=== PATIENT | female | born 1935 | race Caucasian/White ===

== ENCOUNTER 2019-02-21 07:36 | Inpatient (IN) | payer MEDICARE ==
[~2019-02-21] VITALS: Ht 149.9 cm; Wt 66.8 kg
--- NOTE | 2019-02-21 07:58 | PHYS DOC ---
Past History Past Medical History: Diabetes Past Surgical History: Cholecystectomy Alcohol Use: None Drug Use: None Adult General Chief Complaint Chief Complaint: DIZZY/LIGHT HEADED [facility] HPI Patient is an 83-year-old female who presents with complaint of dizziness that started this morning when she woke up at 4:00 AM. Patient states that the dizziness feels like she is a fall and so has been holding onto the wall when she gets up and walks. She denies any nausea or vomiting. She also denies any headache. Patient states that she has had no chest pain or shortness of breath. She states that symptoms are worsened when she stands up. She states that nothing improves the symptoms.[] Review of Systems Review of Systems Constitutional: Denies fever or chills [] Eyes: Denies change in visual acuity, redness, or eye pain [] Respiratory: Denies cough or shortness of breath [] Cardiovascular: No additional information not addressed in HPI [] GI: Denies abdominal pain, nausea, vomiting or diarrhea [] Integument: Denies rash or skin lesions [] Neurologic: Denies headache, focal weakness or sensory changes. Complains of dizziness. [] All other systems were reviewed and found to be within normal limits, except as documented in this note. Allergies Allergies Allergies Coded Allergies Type Severity Reaction Last Updated Verified Sulfa (Sulfonamide Antibiotics) Allergy Unknown 02/21/19 Yes Physical Exam Physical Exam Constitutional: Well developed, well nourished, no acute distress, non-toxic appearance. [] HENT: Normocephalic, atraumatic, bilateral external ears normal, oropharynx moist, no oral exudates, nose normal. [] Eyes: PERRLA, EOMI, conjunctiva normal, no discharge. [] Neck: Normal range of motion, no tenderness, supple, no stridor. [] Cardiovascular: Regular rate and rhythm[] Lungs & Thorax: Bilateral breath sounds clear to auscultation [] Abdomen: Bowel sounds normal, soft, no tenderness. [] Skin: Warm, dry, no erythema, no rash. [] Extremities: No tenderness, no cyanosis, no clubbing, ROM intact. [] Neurologic: Alert and oriented X 3, no focal deficits noted. [] Current Patient Data Vital Signs Vital Signs Date Time Temp Pulse Resp B/P (MAP) Pulse Ox O2 Delivery O2 Flow Rate FiO2 02/21/19 07:49 98.1 94 18 96 Room Air EKG EKG EKG demonstrates normal sinus rhythm with rate of 79. Nonspecific intraventricular block is noted.[] Radiology/Procedures Radiology/Procedures [] Impressions: PROCEDURE: CT HEAD WO CONTRAST Examination: CT HEAD WO CONTRAST History: Dizziness and hypertension Comparison/Correlation: None Findings: Axial images of the head were obtained without contrast. Atrophy and chronic ischemic changes of the white matter are noted. Right anterior limb internal capsule lacunar infarct of indeterminate age noted. No midline shift or mass effect. Right and left external capsule lacunar infarct noted. Cavernous carotid calcification noted. Bony structures are unremarkable. Impression: No intracranial hemorrhage. Lacunar infarcts are present and probably old. RS Compliance Statement: One or more of the following individualized dose reduction techniques were utilized for this examination: 1. Automated exposure control 2. Adjustment of the mA and/or kV according to patient size 3. Use of iterative reconstruction technique Electronically signed by: Jeannette Foley MD (02/21/2019 8:21 AM) [facility] DICTATED AND SIGNED BY: JEANNETTE FOLEY MD DATE: 02/21/19 08 CC: ELISA JOSEPH Jr. DO; PCP,NO ~ Course & Med Decision Making Course & Med Decision Making Pertinent Labs and Imaging studies reviewed. (See chart for details) [] Dragon Disclaimer Dragon Disclaimer This electronic medical record was generated, in whole or in part, using a voice recognition dictation system. Departure Departure: Impression: Primary Impression: Hypertensive crisis Additional Impression: Dizziness Disposition: ADMITTED INPATIENT Admitting Physician: Dave Elmore Condition: IMPROVED Referrals: PCP,NO (PCP) Problem Qualifiers ELISA JOSEPH Jr. DO Feb 21, 2019 07:58
--- NOTE | 2019-02-21 08:00 | EKG ---
[address] [address] Test Date: 2019-02-21 Test Time: 07:53:53 Pat Name: CHARITY GONZALEZ Department: Room: Gender: F Soft[place] Faller: : 1935 Requested By: ELISA JOSEPH Order Number: [id number] Reading MD: Willie Henley MD Measurements Intervals [place] Rate: 79 P: 52 AR: 180 QRS: 6 QRSD: 130 T: 154 QT: 430 QTc: 494 Interpretive Statements SINUS RHYTHM LBBB Electronically Signed On 03-04-2019 14:29:32 CDT by Willie Henley MD
[2019-02-21 08:13] LABS: BASO # 0.1 x10^3/uL (0.0-0.2); BASO % 1 % (0-3); EOS # 0.1 x10^3/uL (0.0-0.7); EOS % 1 % (0-3); HEMATOCRIT 41.1 % (36.0-47.0); HEMOGLOBIN 13.8 g/dL (12.0-15.5); LYMPH # 1.5 x10^3/uL (1.0-4.8); LYMPH % 27 % (24-48); MEAN CORPUSCULAR HEMOGLOBIN 30 pg (25-35); MEAN CORPUSCULAR HGB CONC 34 g/dL (31-37); MEAN CORPUSCULAR VOLUME 88 fL (79-100); MONO # 0.4 x10^3/uL (0.0-1.1); MONO % 7 % (0-9); NEUT # 3.6 x10^3uL (1.8-7.7); NEUT % 64 % (31-73); PLATELET COUNT 276 x10^3/uL (140-400); RED BLOOD COUNT 4.66 x10^6/uL (3.50-5.40); WHITE BLOOD COUNT 5.6 x10^3/uL (4.0-11.0)
--- NOTE | 2019-02-21 08:24 | RAD ---
Examination: CT HEAD WO CONTRAST History: Dizziness and hypertension Comparison/Correlation: None Findings: Axial images of the head were obtained without contrast. Atrophy and chronic ischemic changes of the white matter are noted. Right anterior limb internal capsule lacunar infarct of indeterminate age noted. No midline shift or mass effect. Right and left external capsule lacunar infarct noted. Cavernous carotid calcification noted. Bony structures are unremarkable. Impression: No intracranial hemorrhage. Lacunar infarcts are present and probably old. PQRS Compliance Statement: One or more of the following individualized dose reduction techniques were utilized for this examination: 1. Automated exposure control 2. Adjustment of the mA and/or kV according to patient size 3. Use of iterative reconstruction technique Electronically signed by: Bharat Barbosa MD (02/21/2019 8:21 AM) [facility]
[2019-02-21 08:25] LABS: ALBUMIN 3.5 g/dL (3.4-5.0); ALBUMIN/GLOBULIN RATIO 0.8 (1.0-1.7); CALCIUM 8.8 mg/dL (8.5-10.1); CREATININE 1.3 mg/dL (0.6-1.0); GFR 39.3; POTASSIUM 3.6 mmol/L (3.5-5.1); TOTAL BILIRUBIN 0.4 mg/dL (0.2-1.0); TOTAL PROTEIN 7.7 g/dL (6.4-8.2)
--- NOTE | 2019-02-21 08:26 | RAD ---
Examination: PORTABLE CHEST 1V History: Dizziness Comparison/Correlation: None Findings: Portable frontal view of the chest was obtained. Heart size normal. No pneumothorax. No focal infiltrate. No pneumothorax or definite effusion. No acute bony process. Impression: No active disease. Electronically signed by: Bharat Barbosa MD (02/21/2019 8:23 AM) [facility]
[2019-02-21] MEDS ORDERED: hydrALAZINE 20 MG/ML VIAL. IV ONE (08:30)
[2019-02-21 08:42] LABS: BACTERIA,URINE MANY /HPF (0-FEW); BILIRUBIN,URINE NEG (NEG); CLARITY,URINE HAZY; COLOR,URINE STRAW; GLUCOSE,URINE NEG (NEG); NITRITE,URINE NEG (NEG); SQUAMOUS EPITHELIAL CELL,UR FEW /LPF; UROBILINOGEN,URINE 0.2 mg/dL (0.2 mg/dL)
[2019-02-21] MEDS ORDERED: hydrALAZINE 20 MG/ML VIAL. IV PRN (11:00)
[2019-02-21 11:07] VITALS: BP 223/96
--- NOTE | 2019-02-21 11:12 | PDOC2 ---
CARDIAC CONSULT DATE OF CONSULT Date Of Consult DATE: 02/21/19 TIME: 11:09 REASON FOR CONSULT Reason for Consult Hypertensive Crisis REFERRING PHYSICIAN Referring Physician Dr. Elmore SOURCE Source: Chart review, Patient HPI History of Present Illness This is a 83 yo female who presented secondary to dizziness. Patient reports this began this morning when she woke up. Had to hold on to the wall and furniture when she is up. Has never felt this way before. No dizziness, diaphoresis, palpitations, or nausea/vomiting. Blood pressure significantly elevated upon arrival to the ED. Does have a history of hypertension, but does not take any meds for this. Does not like to take medications. Was put on antihypertensive about 20 years ago and it made her urinate frequently so she quite taking. Has not seen a physician in over 6 years. PAST MEDICAL HISTORY Cardiovascular: HTN Pulmonary: No pertinent hx CENTRAL NERVOUS SYSTEM: CVA GI: No pertinent hx Heme/Onc: No pertinent hx Hepatobiliary: No pertinent hx Psych: No pertinent hx Musculoskeletal: No pertinent hx Rheumatologic: No pertinent hx Infectious disease: No pertinent hx ENT: No pertinent hx Renal/: No pertinent hx Endocrine: Diabetes Dermatology: No pertinent hx PAST SURGICAL HISTORY Past Surgical History: Cholecystectomy FAMILY HISTORY Family History: Hypertension SOCIAL HISTORY Smoke: No ALCOHOL: none Drugs: None Lives: with Family CURRENT MEDICATIONS Current Medications Current Medications Hydralazine HCl (Apresoline) 10 mg 1X ONCE IV Last administered on 02/21/19at 08:21; Start 02/21/19 at 08:30; Stop 02/21/19 at 08:31; Status DC Hydralazine HCl (Apresoline) 10 mg PRN Q4HRS PRN IV ELEVATED BP, SEE COMMENTS; Start 02/21/19 at 11:00 ALLERGIES Allergies: Coded Allergies: Sulfa (Sulfonamide Antibiotics) (Verified Allergy, Unknown, 02/21/19) ROS Review of Systems 14 point ROS conducted with pertinent positives noted above in HPI. PHYSICAL EXAM General: Alert, Oriented X3, Cooperative, No acute distress HEENT: Atraumatic Lungs: Clear to auscultation Heart: Other (ST rate 125, distant heart tones ) Abdomen: No tenderness Extremities: No edema, Normal pulses Skin: No breakdown Neuro: Sensation intact Psych/Mental Status: Mental status NL, Mood NL MUSCULOSKELETAL: Osteoarthritic changes both hands VITALS Vital Signs Vital Signs Date Time Temp Pulse Resp B/P (MAP) Pulse Ox O2 Delivery O2 Flow Rate FiO2 02/21/19 11:07 98.2 112 20 223/96 (138) 94 Room Air LABS LABS Laboratory Tests Test 02/21/19 08:00 02/21/19 08:15 White Blood Count 5.6 x10^3/uL (4.0-11.0) Red Blood Count 4.66 x10^6/uL (3.50-5.40) Hemoglobin 13.8 g/dL (12.0-15.5) Hematocrit 41.1 % (36.0-47.0) Mean Corpuscular Volume 88 fL (79-100) Mean Corpuscular Hemoglobin 30 pg (25-35) Mean Corpuscular Hemoglobin Concent 34 g/dL (31-37) Red Cell Distribution Width 14.0 % (11.5-14.5) Platelet Count 276 x10^3/uL (140-400) Neutrophils (%) (Auto) 64 % (31-73) Lymphocytes (%) (Auto) 27 % (24-48) Monocytes (%) (Auto) 7 % (0-9) Eosinophils (%) (Auto) 1 % (0-3) Basophils (%) (Auto) 1 % (0-3) Neutrophils # (Auto) 3.6 x10^3uL (1.8-7.7) Lymphocytes # (Auto) 1.5 x10^3/uL (1.0-4.8) Monocytes # (Auto) 0.4 x10^3/uL (0.0-1.1) Eosinophils # (Auto) 0.1 x10^3/uL (0.0-0.7) Basophils # (Auto) 0.1 x10^3/uL (0.0-0.2) Sodium Level 140 mmol/L (136-145) Potassium Level 3.6 mmol/L (3.5-5.1) Chloride Level 103 mmol/L (98-107) Carbon Dioxide Level 27 mmol/L (21-32) Anion Gap 10 (6-14) Blood Urea Nitrogen 23 mg/dL (7-20) Creatinine 1.3 mg/dL (0.6-1.0) Estimated GFR (Cockcroft-Gault) 39.3 BUN/Creatinine Ratio 18 (6-20) Glucose Level 174 mg/dL (70-99) Calcium Level 8.8 mg/dL (8.5-10.1) Magnesium Level 2.0 mg/dL (1.8-2.4) Total Bilirubin 0.4 mg/dL (0.2-1.0) Aspartate Amino Transf (AST/SGOT) 20 U/L (15-37) Alanine Aminotransferase (ALT/SGPT) 28 U/L (14-59) Alkaline Phosphatase 74 U/L (46-116) Troponin I Quantitative < 0.017 ng/mL (0-0.055) Total Protein 7.7 g/dL (6.4-8.2) Albumin 3.5 g/dL (3.4-5.0) Albumin/Globulin Ratio 0.8 (1.0-1.7) Urine Collection Type Unknown Urine Color Straw Urine Clarity Hazy Urine pH 6.0 Urine Specific [place] 1.015 Urine Protein >100 mg/dl (NEG-TRACE) Urine Glucose (UA) Neg mg/dL (NEG) Urine Ketones (Stick) Neg mg/dL (NEG) Urine Blood Trace (NEG) Urine Nitrite Neg (NEG) Urine Bilirubin Neg (NEG) Urine Urobilinogen Dipstick 0.2 mg/dL (0.2 mg/dL) Urine Leukocyte Esterase Trace (NEG) Urine RBC 1-2 /HPF (0-2) Urine WBC 11-20 /HPF (0-4) Urine Squamous Epithelial Cells Few /LPF Urine Transitional Epithelial Cells Occ /LPF Urine Bacteria Many /HPF (0-FEW) ASSESSMENT/PLAN Assessment/Plan 1. Dizziness; CT head without acute findings 2. Accelerated hypertension; remains elevated. Has a history of HTN, but has been reluctant to taking medications 3. Diabetes, II 4. LBBB; no previous for comparison 5. H/o CVA 6. MINH, dehydration Recommendations Echo to assess LV systolic function Orthostatics Lipid panel IVFs ASA Add lisinopril. D/w with patient, she is agreeable to take. Monitor and make adjustments as warranted Hydralazine IV PRN Further ischemic evaluation given risk factors and LBBB noted on EKG, probably as an outpatient if agreeable. JOSE TELLES APRN Feb 21, 2019 11:12
[2019-02-21] MEDS ORDERED: METOPROLOL TARTRATE 5 MG/5 ML VIAL. IV ONE (11:30)
[2019-02-21 11:42] VITALS: BP 132/70
[2019-02-21] MEDS ORDERED: FLU VAX QS 2019-20 (36MOS+)/PF 0.5 ML SYRINGE. VAX IM ONE (12:45)
[2019-02-21 12:59] VITALS: BP 146/71
[2019-02-21] MEDS: LISINOPRIL 10 MG TABLET PO SCH (13:00)
[2019-02-21] MEDS: IV NORMAL SALINE 1,000ML 1,000 ML IV SCH (15:01)
[2019-02-21 15:27] VITALS: BP 137/65
[2019-02-21 19:33] VITALS: BP 183/82
--- NOTE | 2019-02-21 19:38 | HP ---
ADMIT DATE: 02/21/2019 HISTORY OF PRESENT ILLNESS: The patient is an 83-year-old female patient who presented to the Emergency Room with a complaint of dizziness that started this morning when she woke up at 4:00 a.m. The patient states that the dizziness feels like she is going to fall and has been holding onto the eller when she gets up and walks. She denied any nausea or vomiting. Denied any headache, denied any chest pain, tingling, numbness, or shortness of breath. Denied any diplopia. She is not feeling things are spinning around. Her symptoms get worse when she stands up. On arrival to the Emergency Room, she was extensively investigated. Her blood pressure was extremely high on admission. Apparently, her blood pressure on arrival was 221/80. She had lab work done, which showed that her blood count is within normal range. Her chemistry showed that her creatinine is slightly high at 1.3. Blood sugar was elevated also at 174. Urinalysis showed that she has proteinuria and leukocyturia as well as many bacteria. Her CT scan of the head was unremarkable. It showed no intracranial hemorrhage and her chest x-ray was unremarkable. PAST MEDICAL HISTORY: Significant for hypertension, type 2 diabetes. She apparently has had previous history of cerebrovascular accident, presented with aphasia and facial droop years ago. PAST SURGICAL HISTORY: Significant for bilateral cataract extraction and cholecystectomy. ALLERGIES: SHE IS ALLERGIC TO SULFA DRUGS. MEDICATIONS: Apparently, the patient has not been on any medication at home and her diabetes was diet controlled. FAMILY HISTORY: She has one brother who in his 70s due to myocardial infarction. SOCIAL HISTORY: She is . Her 2 older sons , one of committing suicide, one killed in a car accident. She has one biological daughter and one adopted son that she does not know much about. She has never smoked, does not drink alcohol or use any recreational drugs. 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 REVIEW OF SYSTEMS: The patient has bilateral cataract extraction, but denied any glaucoma or macular degeneration. Denied any earache, tinnitus or sensorineural deafness. Denied any nosebleeds, stuffy nose or postnasal drip. Denied any sore throat, sore tongue, toothache, hoarseness of voice or difficulty swallowing. Denied any blurring of vision, cataract, glaucoma or macular degeneration. Denied any earache, tinnitus or sensorineural deafness. Denied any nosebleeds, stuffy nose or postnasal drip. Denied any sore throat, sore tongue, toothache, hoarseness of voice or difficulty swallowing. Denied any nausea, vomiting, diarrhea or constipation. Denied any hematemesis, melena or hematochezia. Denied any dysuria, frequency or hematuria, although daughter said she has polyuria. Denied any chest pain, shortness of breath, orthopnea, paroxysmal nocturnal dyspnea. Denied any cough, phlegm or hemoptysis. She did complain of being dizziness, but denied any vertigo. PHYSICAL EXAMINATION: GENERAL: On examining her, she was resting slightly propped up in bed, in no apparent respiratory distress. No pallor, jaundice, cyanosis or thyromegaly. No jugular venous distention. No limb edema. VITAL SIGNS: Her heart rate was 82. We checked her blood pressure lying was 177, sitting was 152/74 and standing was 147/73. HEAD, EYES, EARS, NOSE AND THROAT: Showed normocephalic, atraumatic. NECK: Supple. HEART: Showed normal first and second heart sounds. No gallop or murmur. CHEST: Clear to auscultation. No crepitation or rhonchi. ABDOMEN: Distended, soft, nontender. No guarding or rigidity. No organomegaly. All hernial orifice intact. Bowel sounds normal. NEUROLOGIC: She is awake, alert. All her cranial nerves seem to be grossly intact, although she seemed to have some expressive aphasia. She moves all extremities without difficulty. She is unsteady on her feet and feels dizzy. I did a detail neurological exam and all her cranial nerves are intact and the strength on all 4 limbs are normal and equal about 5/5. There is no evidence of cerebellar dysfunction. No dysdiadochokinesis. [id number] test was negative. The patient could not walk in her line. She is very unsteady and tends to fall onto the other, however, Romberg test was negative. LABORATORY DATA: Showed that her white cell count was 5600, hemoglobin 13.8, hematocrit 41, MCV 88 and platelet count of 276,000 with normal manual differential. Her chemistry showed a serum sodium 140, potassium 3.6, chloride 103, bicarbonate 27, anion gap of 10, BUN 23, creatinine 1.3, estimated GFR was 39 mL per minute. Her glucose 174, calcium was 8.8, magnesium 2. Total bilirubin, AST, ALT, alkaline phosphatase were normal. Her total protein was 7.7, albumin was 3.5. Her urinalysis showed the urine was yellow, straw colored, hazy with a pH of 6, specific gravity of 1.015, there was large amount of protein. The urine was negative for glucose, ketones, trace of blood, negative for nitrite, trace of leukocyte esterase, 1-2 rbc's, 11-20 wbc's, and too many bacteria. As I stated, her chest x-ray showed that the heart size is normal. There is pneumothorax, no focal infiltrate, no effusion, no acute bony process. Her CT scan of the head showed that there is atrophy and chronic ischemic changes in the white matter noted right anterior limb internal capsule lacunar infarct, indeterminate age is noted. No midline shift or mass effect, right and left external capsule lacunar infarct noted. She has cavernous carotid calcification noted. Bony structures are unremarkable. ASSESSMENT AND PLAN: The patient was admitted with dizziness and accelerated hypertension. She is known to have a left bundle-branch block, diabetes mellitus and history of cerebrovascular accident. Her orthostatic showed that she has marked postural drop of almost 30 mm. We did this after she was admitted to the hospital, her blood pressure supine was 177/88, sitting was 152/74, standing was 147/73. She is now on lisinopril and hydralazine IV. She had 3 sets of cardiac enzymes that were negative. Her TSH was normal at 2.66. Her serum triglycerides 115, total cholesterol was 232, LDL cholesterol 157, VLDL was 23, HDL cholesterol 52 and the ratio of 4. We will monitor her blood sugar, although she states that her blood sugar is well controlled. She has had an echocardiogram done, the results were still pending at the time of this dictation. The cardiology team was consulted and I would consult neurologist and check also her carotid Doppler as well as renal Doppler ultrasound. ELIE GLASS MD DR: TITUS/manuel JOB#: [id number] / [id number]
[2019-02-21 22:25] VITALS: BP 148/75
--- NOTE | 2019-02-22 00:05 | CONS ---
DATE OF CONSULTATION: REFERRING PHYSICIAN: Dr. Elmore. REASON FOR CONSULTATION: Dizziness and impaired balance. HISTORY OF PRESENT ILLNESS: This is an 83-year-old right-handed female who was admitted through Emergency Room on account of acute onset of impaired balance and dizziness. According to the patient, she woke up at 2:00 this morning and she was very dizzy and unsteady. She had to hold on the wall and furniture when she is up, but she did not sustain any falls. The patient denies any headaches, visual disturbances, nausea, vomiting, chest pain, shortness of breath or palpitation, dysarthria or dysphagia. She has had weakness of the lower extremities. For this, she likes to walk in the backyard. She did walk uphill yesterday and she got very tired. In the Emergency Room, she was found to have emergency hypertension at 223/96. Initial nonenhanced head CT scan revealed no acute intracranial process, but it showed bilateral external capsule lacunar infarcts. The patient stated she has not taken any blood pressure medication. In the Emergency Room, she was placed on blood pressure medicine, and her blood pressure has been fluctuating throughout the day. PAST MEDICAL HISTORY: Significant for hypertension, history of stroke without neurological residual and diabetes mellitus, diet controlled. PAST SURGICAL HISTORY: Cholecystectomy. FAMILY HISTORY: Positive for hypertension. SOCIAL HISTORY: The patient lives with her daughter at home. She denies smoking, alcohol drinking, or illicit drug use. CURRENT MEDICATIONS: Aspirin 81 mg daily, lorazepam 0.5 mg q.6 hours p.r.n., lisinopril 10 mg daily, hydralazine 10 mg IV p.r.n. for systolic blood pressure more than 160. ALLERGIES: SULFA DRUGS. REVIEW OF SYSTEMS: A 10-point review of system was performed as mentioned above in history of present illness. PHYSICAL EXAMINATION: GENERAL: Well-developed, well-nourished female, not in acute distress. She weighs 66.5 kilos. VITAL SIGNS: Blood pressure 137/65, respiratory rate 20, pulse is 82, temperature 98.4, and oxygen saturation 95% on room air. HEENT: Normocephalic, atraumatic, otherwise unremarkable. NECK: Supple. Negative for carotid bruit, lymphadenopathy or thyromegaly. LUNGS: Clear to A and P. CARDIOVASCULAR: Regular rate and rhythm, normal S1, S2. There is no S3, S4 or murmur. ABDOMEN: Soft. Bowel sounds positive. EXTREMITIES: Negative for cyanosis, clubbing or pitting edema. NEUROLOGICAL EXAM: Mental Status: The patient is alert and oriented x 3. Speech is fluent. There is no language dysfunction. Memory, judgment, and abstract thinking are normal. The patient denies hallucination or delusion. CRANIAL NERVES: Visual allen are full. The pupils are reactive to light and accommodation. The extraocular movements are intact. There is no nystagmus. There is no facial motor or sensory deficit. Hearing is intact bilaterally. The palate is elevated symmetrically. Sternocleidomastoid muscles are powerful bilaterally. The patient shrugs her shoulders symmetrically and protrudes her tongue in the midline without fasciculation or atrophy. MOTOR EXAMINATION: No focal muscle bulk was seen. The tone is normal. The strength is 5/5 throughout. Sensory examination revealed normal pinprick, light touch, vibratory and position senses. Deep tendon reflexes were asymmetric and active with absent Achilles responses. Gait: The stance is steady. The patient walks few steps without difficulties. LABORATORY DATA: CBC revealed white blood cells of 5.6 thousand, hemoglobin 13.8, hematocrit 41.1, platelet count 276,000. Chemistry revealed sodium of 140, potassium 3.6, chloride 103, CO2 of 27, BUN 23, creatinine 1.3, glucose 174. Troponin level is normal. Lipid profile revealed high cholesterol and high LDL. Urinalysis, trace leukocyte esterase with urine white blood cells of 11-20. IMPRESSION: 1. Impaired balance, likely due to emergency hypertension. 2. High risk of stroke including hypertension, hyperlipidemia, age, and abnormal head CT scan consistent with previous stroke. 3. Renal insufficiency versus dehydration. 4. Hyperlipidemia. RECOMMENDATIONS: 1. Treat the underlying hypertension and keep systolic blood pressure around 140. 2. Continue with current home medications. 3. Physical therapy evaluation. 4. Urine culture, rule out urinary tract infections. 5. The patient may be started on statin. 6. Hydration. M Adria HERNANDEZ MD DR: FLASH/manuel JOB#: [id number] / [id number]
[2019-02-22] MEDS: IV NORMAL SALINE 1,000ML 1,000 ML IV SCH (05:09)
[2019-02-22 06:18] VITALS: BP 175/76
[2019-02-22 06:25] LABS: CALCIUM 8.6 mg/dL (8.5-10.1); CREATININE 1.1 mg/dL (0.6-1.0); GFR 47.7; POTASSIUM 3.1 mmol/L (3.5-5.1)
[2019-02-22 06:26] LABS: BASO # 0.1 x10^3/uL (0.0-0.2); BASO % 1 % (0-3); EOS # 0.1 x10^3/uL (0.0-0.7); EOS % 1 % (0-3); HEMATOCRIT 40.3 % (36.0-47.0); HEMOGLOBIN 13.3 g/dL (12.0-15.5); LYMPH # 1.7 x10^3/uL (1.0-4.8); LYMPH % 23 % (24-48); MEAN CORPUSCULAR HEMOGLOBIN 29 pg (25-35); MEAN CORPUSCULAR HGB CONC 33 g/dL (31-37); MEAN CORPUSCULAR VOLUME 89 fL (79-100); MONO # 0.7 x10^3/uL (0.0-1.1); MONO % 10 % (0-9); NEUT # 4.7 x10^3uL (1.8-7.7); NEUT % 65 % (31-73); PLATELET COUNT 294 x10^3/uL (140-400); RED BLOOD COUNT 4.53 x10^6/uL (3.50-5.40); RED CELL DISTRIBUTION WIDTH 14.2 % (11.5-14.5); WHITE BLOOD COUNT 7.2 x10^3/uL (4.0-11.0)
[2019-02-22] MEDS: ASPIRIN ENTERIC COATED 81 MG TABLET.DR. PO SCH (08:14)
[2019-02-22] MEDS ORDERED: POTASSIUM CHLORIDE 20 MEQ TABLET.ER. PO ONE (08:15)
[2019-02-22] MEDS: LISINOPRIL 10 MG TABLET PO SCH (08:15)
--- NOTE | 2019-02-22 08:23 | PDOC ---
CARDIO Progress Notes Date & Time Date of Service DATE: 02/22/19 TIME: 08:18 Time of Evaluation 08:18 Subjective Notes Feeling much better this morning. No dizziness, diaphoresis, SOA, or chest pain Vitals Vitals Vital Signs Date Time Temp Pulse Resp B/P (MAP) Pulse Ox O2 Delivery O2 Flow Rate FiO2 02/22/19 08:15 85 175/76 02/22/19 06:18 98.2 20 93 Room Air Weight Weight [ ] Input and Output I.O. Intake and Output 02/22/19 06:59 Intake Total 520 ml Balance 520 ml Intake Oral 520 ml # Voids 8 Laboratory Labs Laboratory Tests Test 02/21/19 08:00 02/21/19 08:15 02/21/19 12:33 02/21/19 15:35 White Blood Count 5.6 x10^3/uL (4.0-11.0) Red Blood Count 4.66 x10^6/uL (3.50-5.40) Hemoglobin 13.8 g/dL (12.0-15.5) Hematocrit 41.1 % (36.0-47.0) Mean Corpuscular Volume 88 fL (79-100) Mean Corpuscular Hemoglobin 30 pg (25-35) Mean Corpuscular Hemoglobin Concent 34 g/dL (31-37) Red Cell Distribution Width 14.0 % (11.5-14.5) Platelet Count 276 x10^3/uL (140-400) Neutrophils (%) (Auto) 64 % (31-73) Lymphocytes (%) (Auto) 27 % (24-48) Monocytes (%) (Auto) 7 % (0-9) Eosinophils (%) (Auto) 1 % (0-3) Basophils (%) (Auto) 1 % (0-3) Neutrophils # (Auto) 3.6 x10^3uL (1.8-7.7) Lymphocytes # (Auto) 1.5 x10^3/uL (1.0-4.8) Monocytes # (Auto) 0.4 x10^3/uL (0.0-1.1) Eosinophils # (Auto) 0.1 x10^3/uL (0.0-0.7) Basophils # (Auto) 0.1 x10^3/uL (0.0-0.2) Sodium Level 140 mmol/L (136-145) Potassium Level 3.6 mmol/L (3.5-5.1) Chloride Level 103 mmol/L (98-107) Carbon Dioxide Level 27 mmol/L (21-32) Anion Gap 10 (6-14) Blood Urea Nitrogen 23 mg/dL (7-20) Creatinine 1.3 mg/dL (0.6-1.0) Estimated GFR (Cockcroft-Gault) 39.3 BUN/Creatinine Ratio 18 (6-20) Glucose Level 174 mg/dL (70-99) Calcium Level 8.8 mg/dL (8.5-10.1) Magnesium Level 2.0 mg/dL (1.8-2.4) Total Bilirubin 0.4 mg/dL (0.2-1.0) Aspartate Amino Transf (AST/SGOT) 20 U/L (15-37) Alanine Aminotransferase (ALT/SGPT) 28 U/L (14-59) Alkaline Phosphatase 74 U/L (46-116) Troponin I Quantitative < 0.017 ng/mL (0-0.055) < 0.017 ng/mL (0-0.055) < 0.017 ng/mL (0-0.055) Total Protein 7.7 g/dL (6.4-8.2) Albumin 3.5 g/dL (3.4-5.0) Albumin/Globulin Ratio 0.8 (1.0-1.7) Triglycerides Level 115 mg/dL (0-150) Cholesterol Level 232 mg/dL (0-200) LDL Cholesterol, Calculated 157 mg/dL (0-100) VLDL Cholesterol, Calculated 23 mg/dL (0-40) Non-HDL Cholesterol Calculated 180 mg/dL (0-129) HDL Cholesterol 52 mg/dL (40-60) Cholesterol/HDL Ratio 4.0 Thyroid Stimulating Hormone (TSH) 2.766 uIU/mL (0.358-3.740) Urine Collection Type Unknown Urine Color Straw Urine Clarity Hazy Urine pH 6.0 Urine Specific [place] 1.015 Urine Protein >100 mg/dl (NEG-TRACE) Urine Glucose (UA) Neg mg/dL (NEG) Urine Ketones (Stick) Neg mg/dL (NEG) Urine Blood Trace (NEG) Urine Nitrite Neg (NEG) Urine Bilirubin Neg (NEG) Urine Urobilinogen Dipstick 0.2 mg/dL (0.2 mg/dL) Urine Leukocyte Esterase Trace (NEG) Urine RBC 1-2 /HPF (0-2) Urine WBC 11-20 /HPF (0-4) Urine Squamous Epithelial Cells Few /LPF Urine Transitional Epithelial Cells Occ /LPF Urine Bacteria Many /HPF (0-FEW) Test 02/22/19 05:43 White Blood Count 7.2 x10^3/uL (4.0-11.0) Red Blood Count 4.53 x10^6/uL (3.50-5.40) Hemoglobin 13.3 g/dL (12.0-15.5) Hematocrit 40.3 % (36.0-47.0) Mean Corpuscular Volume 89 fL (79-100) Mean Corpuscular Hemoglobin 29 pg (25-35) Mean Corpuscular Hemoglobin Concent 33 g/dL (31-37) Red Cell Distribution Width 14.2 % (11.5-14.5) Platelet Count 294 x10^3/uL (140-400) Neutrophils (%) (Auto) 65 % (31-73) Lymphocytes (%) (Auto) 23 % (24-48) Monocytes (%) (Auto) 10 % (0-9) Eosinophils (%) (Auto) 1 % (0-3) Basophils (%) (Auto) 1 % (0-3) Neutrophils # (Auto) 4.7 x10^3uL (1.8-7.7) Lymphocytes # (Auto) 1.7 x10^3/uL (1.0-4.8) Monocytes # (Auto) 0.7 x10^3/uL (0.0-1.1) Eosinophils # (Auto) 0.1 x10^3/uL (0.0-0.7) Basophils # (Auto) 0.1 x10^3/uL (0.0-0.2) Sodium Level 143 mmol/L (136-145) Potassium Level 3.1 mmol/L (3.5-5.1) Chloride Level 105 mmol/L (98-107) Carbon Dioxide Level 28 mmol/L (21-32) Anion Gap 10 (6-14) Blood Urea Nitrogen 19 mg/dL (7-20) Creatinine 1.1 mg/dL (0.6-1.0) Estimated GFR (Cockcroft-Gault) 47.7 Glucose Level 127 mg/dL (70-99) Calcium Level 8.6 mg/dL (8.5-10.1) Physical Exams HEENT: Neck Supple W Full Motion Chest: Symmetric Lungs: Clear to Auscultation Heart: S1S2, RRR, no murmurs Abdomen: Soft N/T Extremities: No Edema Neurology: alert, oriented, follow commands Assessment Assessment 1. Dizziness; CT head without acute findings. Most probably secondary to #2. Resolved 2. Accelerated hypertension; better controlled, but slightly labile. Echo showed preserved LV systolic function with an EF of 55-60%, No WMA. PAP 30 mmHg 3. Diabetes, II; as per PCP 4. LBBB; no previous EKG available for comparison 5. H/o CVA 6. MINH, dehydration; improved 7. Hyperlipidemia 8. Hypokalemia Recommendations ASA, add statin Increase lisinopril to 20mg. Replace K Consider outpatient ischemic evaluation given risk factors and LBBB Follow up with Dr. Henley as scheduled. JOSE TELLES APRN Feb 22, 2019 08:22
[2019-02-22] MEDS: LISINOPRIL 20 MG TABLET PO SCH (09:23)
[2019-02-22] MEDS ORDERED: METOPROLOL TARTRATE 5 MG/5 ML VIAL. IV PRN (10:45)
[2019-02-22 11:11] VITALS: BP 181/76
--- NOTE | 2019-02-22 13:18 | RAD ---
EXAM: Carotid Doppler sonogram. HISTORY: Dizziness. Hypertension. TECHNIQUE: Flores scale and color Doppler sonographic evaluation of the neck with spectral waveform analysis was performed and static images are submitted for review. FINDINGS: There is mild vascular plaque within the carotid bifurcations. The peak systolic velocity within the right common carotid artery is 69 cm/sec. The peak systolic velocity within the right internal carotid artery is 67 cm/sec and the end diastolic velocity within the right internal carotid artery is 18 cm/sec. The right ICA/CCA ratio is 1.24. The peak systolic velocity within the left common carotid artery is 61 cm/sec. The peak systolic velocity within the left internal carotid artery is 81 cm/sec and the end diastolic velocity within the left internal carotid artery is 21 cm/sec. The left ICA/CCA ratio is 1.39. There is normal antegrade flow within both vertebral arteries. IMPRESSION: No Doppler evidence of hemodynamically significant stenosis within the carotid or vertebral arteries. PQRS Compliance Statement - Stenosis calculations for CT, MR and conventional angiography are based upon measurement of the distal ICA diameter in accordance with the NASCET methodology. Stenosis calculations for carotid ultrasound studies are derived from validated velocity criteria which are known to correlate with the NASCET methodology. Electronically signed by: Mamie Caruso MD (02/22/2019 1:15 PM) [place] [id number]
--- NOTE | 2019-02-22 13:53 | CARD ---
MR#: [id number] Date of Study: 02/21/2019 Ordering Physician: JOSE TELLES, Referring Physician: JOSE TELLES, Tech: Kasie Chery CALEB APPROVED REPORT EXAM: Two-dimensional and M-mode echocardiogram with Doppler and color Doppler. Other Information Quality : Good Rhythm : LBBB INDICATION Abnormal ECG 2D DIMENSIONS RVDd2.6 (2.9-3.5cm)Left Atrium(2D)4.0 (1.6-4.0cm) IVSd1.3 (0.7-1.1cm)Aortic Root(2D)2.6 (2.0-3.7cm) LVDd3.4 (3.9-5.9cm)LVOT Diameter1.9 (1.8-2.4cm) PWd0.8 (0.7-1.1cm)LVDs2.5 (2.5-4.0cm) FS (%) 27.0 %LVEF(%)55.0 (>50%) Aortic Valve AoV Peak Nirav.160.0cm/sAoV QIA251.0cm AO Peak GR.10.0mmHgLVOT VTI 27.45cm AO Mean GR.7mmHgAVA (VTI)2.20cm2 Tricuspid Valve TR P. [id number]/sRAP [id number] TR Peak Gr.[id number] LEFT VENTRICLE The left ventricle is normal size. There is mild asymmetric septal left ventricular hypertrophy. The left ventricular systolic function is normal. The Ejection Fraction is 55-60%. Septal motion consiste nt with conduction abnormality. Transmitral Doppler flow pattern is Grade I-abnormal relaxation patte rn. RIGHT VENTRICLE The right ventricle is normal size. The right ventricular systolic function is normal. ATRIA The left atrium is mildly dilated. The right atrium size is normal. The interatrial septum is intact with no evidence for an atrial septal defect or patent foramen ovale as noted on 2-D or Doppler imagi ng. AORTIC VALVE The aortic valve is calcified but opens well. Doppler and Color Flow revealed no significant aortic r egurgitation. There is no significant aortic valvular stenosis. MITRAL VALVE The mitral valve is calcified but opens well. Mitral annular calcification is mild. There is no evide nce of mitral valve prolapse. There is no mitral valve stenosis. Doppler and Color Flow revealed no m itral valve regurgitation noted. TRICUSPID VALVE The tricuspid valve is normal in structure and function. Doppler and Color Flow revealed trace tricus pid regurgitation. The PA pressure was estimated at 30 mmHg. There is no tricuspid valve stenosis. PULMONIC VALVE The pulmonic valve is not well visualized. Doppler and Color Flow revealed no pulmonic valvular regur gitation. There is no pulmonic valvular stenosis. GREAT VESSELS The aortic root is normal in size. The ascending aorta is normal in size. The IVC is normal in size a nd collapses >50% with inspiration. PERICARDIAL EFFUSION There is no evidence of significant pericardial effusion. Critical Notification Critical Value: No <Conclusion> The left ventricular systolic function is normal. The Ejection Fraction is 55-60%. Trace tricuspid regurgitation. The PA pressure was estimated at 30 mmHg. There is no evidence of significant pericardial effusion. Signed by : Reji Mars, Electronically Approved : 02/21/2019 17:17:23
[2019-02-22] MEDS ORDERED: METOPROLOL TART IMMED RELEASE 25 MG TABLET PO ONE (14:45)
--- NOTE | 2019-02-22 14:58 | EKG ---
[address] [address] Test Date: 2019-02-22 Test Time: 12:01:24 Pat Name: CHARITY GONZALEZ Department: Room: 107 A Gender: F Hr Operations Advisor: : 1935 Requested By: ELIE GLASS Order Number: [id number] Reading MD: Willie Henley MD Measurements Intervals [place] Rate: 68 P: 56 UT: 188 QRS: 5 QRSD: 128 T: 179 QT: 458 QTc: 487 Interpretive Statements SINUS RHYTHM LEFT BUNDLE BRANCH BLOCK Electronically Signed On 03-05-2019 10:05:32 CDT by Willie Henley MD
[2019-02-22 15:09] VITALS: BP 183/83
--- NOTE | 2019-02-22 15:41 | RAD ---
EXAM: Flores scale and color Doppler renal artery sonogram. HISTORY: Uncontrolled hypertension. TECHNIQUE: Flores scale and color Doppler sonographic imaging of the kidneys and renal arteries with spectral waveform analysis was. COMPARISON: None. FINDINGS: The exam is limited due to body habitus and bowel gas. The kidneys are not well seen. The proximal right renal artery is not seen. The peak systolic velocity within the visualized right renal artery is 53 cm/s and the peak systolic velocity within the left renal artery is 118 cm/s. There are normal renal artery to aorta velocity ratios. The kidneys are normal in size. There is no hydronephrosis. The bladder is empty. IMPRESSION: 1. No Doppler evidence of greater than 60% stenosis within the renal arteries, with limited evaluation of the proximal right renal artery due to body habitus and bowel gas. 2. Unremarkable grayscale evaluation of the kidneys, also limited due to body habitus and bowel gas. Electronically signed by: Mamie Caruso MD (02/22/2019 3:38 PM) [facility]
[2019-02-22 16:04] VITALS: BP 176/88
[2019-02-22] MEDS: LORazepam 0.5 MG TABLET PO PRN (16:20)
[2019-02-22 19:41] VITALS: BP 164/71
[2019-02-22] MEDS: POTASSIUM CHLORIDE 20 MEQ TABLET.ER. PO SCH (20:45)
[2019-02-22] MEDS: METOPROLOL TART IMMED RELEASE 25 MG TABLET PO SCH (20:45)
[2019-02-22] MEDS ORDERED: ATORVASTATIN CALCIUM 10 MG TABLET. PO SCH (21:00)
[2019-02-22 22:44] VITALS: BP 153/73
--- NOTE | 2019-02-23 00:06 | PN ---
DATE: SUBJECTIVE: The patient is resting flat, sleeping comfortably, in no apparent distress. She is sleepy, but arousable. On questioning her, denied any complaint. The nursing staff did not voice any concern except that blood pressure was still high, although slightly better than yesterday. When I examined her this afternoon, she looked well and was clearly in no apparent respiratory distress. No pallor, jaundice, cyanosis or thyromegaly. No jugular venous distention. No limb edema. PHYSICAL EXAMINATION: GENERAL: When I examined her, she was resting slightly propped up in bed, in no apparent respiratory distress. No pallor, jaundice, cyanosis or thyromegaly. No jugular venous distention. No limb edema. VITAL SIGNS: Her heart rate was 100, blood pressure was 181/76, temperature was 97.8, respiratory rate was 24 and oxygen saturation was 98%. HEAD, EYES, EARS, NOSE AND THROAT: Showed normocephalic, atraumatic. NECK: Supple. HEART: Showed normal first and second heart sounds. No gallop or murmur. CHEST: Clear to auscultation. No crepitation or rhonchi. ABDOMEN: Distended, soft, nontender. No guarding or rigidity. No organomegaly. All hernial orifice intact. Bowel sounds normal. NEUROLOGIC: She is sleepy, but arousable. All cranial nerves are intact. He moves extremities without difficulty. She ambulates without assistance or assistive devices. Her intake over the last 24 hours was 520, output was not reported. LABORATORY DATA: Her white cell count this morning was 7200, hemoglobin 13, hematocrit 40, MCV 89 and platelet count 294,000. Her serum sodium was 143, potassium 3.1, chloride 105, bicarbonate 28, anion gap of 10, BUN 19, creatinine 1.1, estimated GFR was 48 mL per minute. Her glucose 127, calcium was 8.6, has 3 sets of cardiac enzymes that were negative, ruled out myocardial infarction. She has bilateral carotid Doppler ultrasound, which showed no Doppler evidence of hemodynamically significant stenosis within the carotid or vertebral arteries. She did have a renal artery duplex. Results are still pending. ASSESSMENT: 1. Accelerated hypertension, better controlled, although not optimally yet. She has preserved left ventricular systolic function, ejection fraction 55%. 2. Type 2 diabetes. 3. Acute kidney injury, improved. Her creatinine is down from 1.3 to 1.1. 4. Hyperlipidemia. 5. Hypokalemia, for which we will start her on potassium supplement. PLAN: My plan is to add metoprolol 25 mg 1 tablet twice a day. ELIE GLASS MD DR: TITUS/manuel JOB#: [id number] / [id number]
[2019-02-23 05:28] VITALS: BP 199/81
[2019-02-23 07:04] LABS: CALCIUM 8.7 mg/dL (8.5-10.1); CREATININE 1.1 mg/dL (0.6-1.0); GFR 47.7; POTASSIUM 3.5 mmol/L (3.5-5.1)
[2019-02-23] MEDS: METOPROLOL TART IMMED RELEASE 25 MG TABLET PO SCH (09:01)
[2019-02-23] MEDS: LISINOPRIL 20 MG TABLET PO SCH (09:01)
[2019-02-23] MEDS: POTASSIUM CHLORIDE 20 MEQ TABLET.ER. PO SCH (09:02)
[2019-02-23] MEDS: ASPIRIN ENTERIC COATED 81 MG TABLET.DR. PO SCH (09:03)
[2019-02-23 10:04] VITALS: BP 222/98
[2019-02-23] MEDS ORDERED: LABETALOL HCL 100 MG TABLET PO ONE (10:30)
[2019-02-23] MEDS ORDERED: LABETALOL HCL 100 MG TABLET PO SCH ×2 (10:30→21:00)
[2019-02-23] MEDS: LORazepam 0.5 MG TABLET PO PRN (10:37)
[2019-02-23 10:44] VITALS: BP 242/91
[2019-02-23 11:24] VITALS: BP 242/91
--- NOTE | 2019-02-23 12:15 | PN ---
DATE: 02/23/2019 SUBJECTIVE: The patient is sitting comfortably in her chair, in no apparent distress, has been up and about without difficulty. Denied any complaint. Her blood pressure continued to be extremely high. In fact, her blood pressure was more than 200 systolic. She was given lisinopril as well as metoprolol without much improvement. She has had her duplex renal artery sonogram, which showed no Doppler evidence of greater than 60% stenosis within the renal arteries, was limited evaluation of the proximal right renal artery due to body habitus and bowel gas. There was unremarkable Grayscale evaluation of the kidneys, also limited due to body habitus and bowel gas. She has had bilateral carotid Doppler, showed no Doppler evidence of hemodynamically significant stenosis within the carotid or vertebral arteries. PHYSICAL EXAMINATION: GENERAL: On examining her, she looked well and was clearly in no apparent respiratory distress. No pallor, jaundice, cyanosis, or thyromegaly. No jugular venous distention or limb edema. VITAL SIGNS: Her heart rate was 74, blood pressure was 199/81, temperature was 97, respiratory rate was 20, and oxygen saturation was 94%. HEAD, EYES, EARS, NOSE, AND THROAT: Normocephalic, atraumatic. NECK: Supple. HEART: Showed normal first and second heart sounds with no gallop, rub, or murmur. CHEST: Clear to auscultation. No crepitation or rhonchi. ABDOMEN: Distended, soft, nontender. No guarding or rigidity. No organomegaly. All hernial orifice intact. Bowel sounds normal. NEUROLOGIC: She was awake, alert, responding appropriately. All cranial nerves intact. She moves extremities without difficulty. She ambulates with a walker. ASSESSMENT: Severe systolic hypertension. PLAN: My plan is to discontinue metoprolol and start her on labetalol, and we will observe her today, and if her blood pressure responds to labetalol, she can be discharged. She has been insisting to go home. ELIE GLASS MD DR: TITUS/manuel JOB#: [id number] / [id number]
--- NOTE | 2019-02-23 15:07 | PN ---
DATE: REFERRING PHYSICIAN: Dr. Elmore. SUBJECTIVE: The patient denies any new medical or neurological complaints. Her blood pressure has been high; however, renal ultrasound revealed no significant stenosis of the renal arteries and color Doppler study revealed no evidence of significant stenosis as well. OBJECTIVE: GENERAL: Well-developed, well-nourished female, not in acute distress. VITAL SIGNS: Blood pressure is 242/91, respiratory rate 20, pulse is 74, oxygen saturation 96% on room air. HEENT: Normocephalic, atraumatic, otherwise unremarkable. NECK: Supple. Negative for carotid bruit, lymphadenopathy or thyromegaly. LUNGS: Clear to A and P. CARDIOVASCULAR: Regular rate and rhythm, normal S1, S2. ABDOMEN: Soft. Bowel sounds positive. EXTREMITIES: Negative for cyanosis, clubbing, pitting edema. NEUROLOGICAL EXAM: Mental Status: The patient is alert and oriented x 3. Speech is fluent. There is no language dysfunction. Cranial nerves are intact. No focal motor or sensory deficit. Deep tendon reflexes are symmetric and active without pathology responses. Gait and coordination are normal. LABORATORY DATA: Chemistry: Sodium 140, potassium 3.5, chloride 104, CO2 of 28, BUN 16, creatinine 1.1 and glucose 159, calcium 8.7. IMPRESSION: 1. Severe hypertension with multiple risk of stroke. 2. Multiple medical problems include hypertension, hyperlipidemia, diabetes mellitus and hypokalemia. RECOMMENDATIONS: Aggressive treatment for hypertension, otherwise continue with current managements. M Adria HERNANDEZ MD DR: FLASH/manuel JOB#: [id number] / [id number]
--- NOTE | 2019-02-24 04:18 | PN ---
DATE: 02/22/2019 SUBJECTIVE: The patient denies any new medical or neurological complaints. OBJECTIVE: GENERAL: Well-developed, well-nourished female, not in acute distress. VITAL SIGNS: Blood pressure 175/76, respiratory rate 24, pulse is 85, temperature is 97.8, oxygen saturation 98% on room air. HEENT: Normocephalic, atraumatic, otherwise unremarkable. NECK: Supple. Negative for carotid bruit, lymphadenopathy, or thyromegaly. LUNGS: Clear to A and P. CARDIOVASCULAR: Regular rhythm, normal S1, S2. There is no S3, S4, or murmur. ABDOMEN: Soft. Bowel sounds positive. EXTREMITIES: Negative for cyanosis, clubbing, or edema. NEUROLOGICAL EXAMINATION: Mental status: The patient is alert and oriented x 3. Speech is fluent. There is no language dysfunction. She denies hallucination or delusion. Cranial nerves are intact. Motor examination: No focal muscle bulk wasting. The tone is normal. The strength is 5/5 throughout. Sensory examination revealed normal pinprick, light touch, vibratory and position senses. Deep tendon reflexes were asymmetric and active with absent Achilles responses. Gait: The stance is more steady. The gait is normal. LABORATORY DATA: CBC revealed white blood cells of 7.2 thousand, hemoglobin 13.3, hematocrit 40.3, platelet count 294,000. Chemistry reveals sodium of 143, potassium 3.1, chloride 105, CO2 28, BUN 19, creatinine 1.1, glucose 127, and calcium 8.6. Renal ultrasound revealed no greater than 60% stenosis of the renal arteries, otherwise unremarkable. Carotid Doppler study revealed no evidence of significant stenosis. ASSESSMENT: Hypertension with current acceleration, hypokalemia. Multiple risks for stroke or TIA including hypertension, hyperlipidemia, age, and abnormal CT scan consistent with previous stroke. Renal insufficiency. RECOMMENDATIONS: Continue with current management initiated by Dr. Elmore and potassium supplement. M Adria HERNANDEZ MD DR: FLASH/manuel JOB#: [id number] / [id number]
== END 2019-02-23 11:45 | disposition left against medical advice (07) | DRG 304 ==
LOC: ER 07:36 → 1 SOUTH 10:28
PROVIDERS: ADMIT Internal Medicine; ATTEND Internal Medicine
DX: I16.1 Hypertensive emergency (principal); N17.0 Acute kidney failure with tubular necrosis; I44.7 Left bundle-branch block, unspecified; E86.0 Dehydration; E87.6 Hypokalemia; E78.5 Hyperlipidemia, unspecified; I10 Essential (primary) hypertension; E11.65 Type 2 diabetes mellitus with hyperglycemia; I69.320 Aphasia following cerebral infarction; Z98.42 Cataract extraction status, left eye; Z98.41 Cataract extraction status, right eye; Z88.2 Allergy status to sulfonamides; Z90.49 Acquired absence of other specified parts of digestive tract; Z82.49 Family history of ischemic heart disease and other diseases of the circulatory system
CPT/HCPCS: 36415; 70450; 71045; 76770; 80048; 80053; 80061; 81001; 82947; 83735; 84443; 84484; 85025; 87086; 87186; 90471; 90686; 93005; 93306; 93880; 96374; J0360; J3490; 99285-25; J7030

== ENCOUNTER 2020-02-21 16:40 | Inpatient (IN) | payer MEDICARE ==
[~2020-02-21] VITALS: Ht 149.9 cm; Wt 59.6 kg
--- NOTE | 2020-02-21 17:11 | PHYS DOC ---
Past History Past Medical History: Diabetes, Stroke Past Surgical History: Cholecystectomy Alcohol Use: None Drug Use: None General Adult EDM: Chief Complaint: WEAKNESS/GENERALIZED HPI: HPI: Patient is a 84-year-old female presents with a chief complaint of generalized weakness. Patient was seen at [facility] yesterday and was discharged. Patient had 2 days of generalized weakness and dizziness. Patient denies any fevers chills cough vomiting diarrhea or blood in her stools. Patient denies any pain at this time. Symptoms are worse when she walks or exerts herself. Patient describes the dizziness as lightheadedness and room spinning. Review of Systems: Review of Systems: Constitutional: Denies fever or chills but complains of generalized weakness Eyes: Denies change in visual acuity HENT: Denies nasal congestion or sore throat Respiratory: Denies cough or shortness of breath Cardiovascular: Denies chest pain or edema GI: Denies abdominal pain, nausea, vomiting, bloody stools or diarrhea : Denies dysuria Musculoskeletal: Denies back pain or joint pain Integument: Denies rash Neurologic: Denies headache, focal weakness but complains of dizziness Endocrine: Denies polyuria or polydipsia Lymphatic: Denies swollen glands Psychiatric: Denies depression or anxiety Heart Score: Risk Factors: Risk Factors: DM, Current or recent (<one month) smoker, HTN, HLP, family history of CAD, obesity. Risk Scores: Score 0 - 3: 2.5% MACE over next 6 weeks - Discharge Home Score 4 - 6: 20.3% MACE over next 6 weeks - Admit for Clinical Observation Score 7 - 10: 72.7% MACE over next 6 weeks - Early Invasive Strategies Allergies: Allergies: Allergies Coded Allergies Type Severity Reaction Last Updated Verified Sulfa (Sulfonamide Antibiotics) Allergy Intermediate 02/22/19 Yes Physical Exam: PE: Constitutional: Well developed, well nourished, no acute distress, non-toxic appearance. [] HENT: Normocephalic, atraumatic, bilateral external ears normal, no trismus nose normal. [] Eyes: PERRLA, EOMI, conjunctiva normal, no discharge. [] Neck: Normal range of motion, no tenderness, supple, no stridor. [] Cardiovascular:Heart rate regular rhythm, peripheral pulse intact cap refill is brisk Lungs & Thorax: Bilateral breath sounds clear, no respiratory distress Abdomen: soft, no tenderness, no masses, no pulsatile masses. [] Skin: Warm, dry, no erythema, no rash. [] Back: No tenderness, no CVA tenderness. [] Extremities: No tenderness, no cyanosis, no clubbing, ROM intact, no edema. [] Neurologic: Alert and oriented X 3, normal motor function, normal sensory function, mild expressive aphasia, cerebellar exam grossly intact Psychologic: Affect normal, judgement normal, mood normal. [] Current Patient Data: Vital Signs: Vital Signs Date Time Temp Pulse Resp B/P (MAP) Pulse Ox O2 Delivery O2 Flow Rate FiO2 02/21/20 16:48 98.7 93 16 160/75 (103) 96 EKG: EKG: [] Radiology/Procedures: Radiology/Procedures: [][address] [address] IMAGING REPORT Signed PATIENT: CHARITY GONZALEZ ACCOUNT: [id number] : 1935 LOCATION: ER AGE: 84 SEX: F EXAM STATUS: PRE ER ORD. PHYSICIAN: DERRELL GONZALEZ MD REASON: weak PROCEDURE: PORTABLE CHEST 1V EXAMINATION: PORTABLE CHEST 1V CLINICAL HISTORY: Weakness EXAM DATE/TIME: 02/21/2020 4:59 PM COMPARISON: 02/21/2019 FINDINGS: Lines, Tubes, and Devices: None. Cardiomediastinal Silhouette: Normal heart size. Aortic atherosclerotic calcification. Lungs and Pleura: No evidence of focal airspace consolidation or pleural effusion. Pulmonary vasculature unremarkable. Bones and Soft Tissues: Degenerative changes of the thoracic spine. IMPRESSION: No evidence of acute cardiopulmonary abnormality or significant interval change. Electronically signed by: Hola Fall DO (02/21/2020 5:28 PM) [id number] DICTATED AND SIGNED BY: HOLA FALL DO DATE: 02/21/20 172 CC: DERRELL GONZALEZ MD; PCP,NO ~ [address] [address] IMAGING REPORT Signed PATIENT: CHARITY GONZALEZ ACCOUNT: [id number] : 1935 LOCATION: ER AGE: 84 SEX: F EXAM STATUS: PRE ER ORD. PHYSICIAN: DERRELL GONZALEZ MD REASON: weak and dizzy PROCEDURE: CT HEAD WO CONTRAST PQRS Compliance Statement: One or more of the following individualized dose reduction techniques were utilized for this examination: 1. Automated exposure control 2. Adjustment of the mA and/or kV according to patient size 3. Use of iterative reconstruction technique CT HEAD WITHOUT CONTRAST History: Reason: weak and dizzy / Spl. Instructions: / History: Comparison: CT head without contrast, February 21, 2019. Technique: Axial images are obtained of the head from the skull base through the vertex without IV contrast. Findings: No mass-effect, midline shift, extra-axial fluid collection, hemorrhage, or obvious acute infarction is identified. Basilar cisterns are patent. The ventricles and sulci are prominent, consistent with age-related cerebral atrophy. There is supratentorial white matter hypoattenuation. This is a nonspecific finding but is commonly due to chronic small vessel ischemic disease. Small old infarcts right and left cerebellum. Bone windows demonstrate no acute calvarial abnormality. The visualized paranasal sinuses are clear. Mastoid air cells are well aerated. IMPRESSION: 1. No acute intracranial abnormality. 2. Age-related cerebral atrophy and moderate supratentorial white matter changes probably due to chronic small vessel ischemic disease. 3. 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 Electronically signed by: Abhi Magaña MD (02/21/2020 5:29 PM) [facility] DICTATED AND SIGNED BY: ABHI MAGAÑA MD DATE: 02/21/20 1729 CC: DERRELL GONZALEZ MD; PCP,NO ~ Course & Med Decision Making: Course & Med Decision Making Pertinent Labs and Imaging studies reviewed. (See chart for details) [] 84-year-old female presents with generalized weakness. Patient is extremely weak and cannot ambulate. I discussed the case earlier with Dr. Elmore will admit. Her chest x-ray and CT of her head are unremarkable. EKG shows no ischemic changes. Labs are pending at time of disposition. Dragon Disclaimer: Dragon Disclaimer: This electronic medical record was generated, in whole or in part, using a voice recognition dictation system. Departure Departure: Impression: Primary Impression: Generalized weakness Disposition: 01 HOME/RESIDENCE PRIOR TO ADM Admitting Physician: Dave Elmore Condition: STABLE Referrals: PCP,NO (PCP) Justification of Admission: Justification of Admission: Justification of Admission Dx: Yes (too weak to ambulate) DERRELL GONZALEZ MD Feb 21, 2020 17:11
[2020-02-21 17:27] LABS: BASO % 1 % (0-3); EOS # 0.1 x10^3/uL (0.0-0.7); EOS % 1 % (0-3); HEMATOCRIT 40.4 % (36.0-47.0); HEMOGLOBIN 13.9 g/dL (12.0-15.5); LYMPH # 1.4 x10^3/uL (1.0-4.8); LYMPH % 16 % (24-48); MEAN CORPUSCULAR HEMOGLOBIN 30 pg (25-35); MEAN CORPUSCULAR HGB CONC 34 g/dL (31-37); MEAN CORPUSCULAR VOLUME 88 fL (79-100); MONO # 0.8 x10^3/uL (0.0-1.1); MONO % 9 % (0-9); NEUT # 6.4 x10^3uL (1.8-7.7); NEUT % 74 % (31-73); PLATELET COUNT 327 x10^3/uL (140-400); RED BLOOD COUNT 4.62 x10^6/uL (3.50-5.40); RED CELL DISTRIBUTION WIDTH 13.3 % (11.5-14.5); WHITE BLOOD COUNT 8.6 x10^3/uL (4.0-11.0)
--- NOTE | 2020-02-21 17:30 | RAD ---
EXAMINATION: PORTABLE CHEST 1V CLINICAL HISTORY: Weakness EXAM DATE/TIME: 02/21/2020 4:59 PM COMPARISON: 02/21/2019 FINDINGS: Lines, Tubes, and Devices: None. Cardiomediastinal Silhouette: Normal heart size. Aortic atherosclerotic calcification. Lungs and Pleura: No evidence of focal airspace consolidation or pleural effusion. Pulmonary vasculature unremarkable. Bones and Soft Tissues: Degenerative changes of the thoracic spine. IMPRESSION: No evidence of acute cardiopulmonary abnormality or significant interval change. Electronically signed by: Hola Champagne DO (02/21/2020 5:28 PM) [id number]
--- NOTE | 2020-02-21 17:32 | RAD ---
PQRS Compliance Statement: One or more of the following individualized dose reduction techniques were utilized for this examination: 1. Automated exposure control 2. Adjustment of the mA and/or kV according to patient size 3. Use of iterative reconstruction technique CT HEAD WITHOUT CONTRAST History: Reason: weak and dizzy / Spl. Instructions: / History: Comparison: CT head without contrast, February 21, 2019. Technique: Axial images are obtained of the head from the skull base through the vertex without IV contrast. Findings: No mass-effect, midline shift, extra-axial fluid collection, hemorrhage, or obvious acute infarction is identified. Basilar cisterns are patent. The ventricles and sulci are prominent, consistent with age-related cerebral atrophy. There is supratentorial white matter hypoattenuation. This is a nonspecific finding but is commonly due to chronic small vessel ischemic disease. Small old infarcts right and left cerebellum. Bone windows demonstrate no acute calvarial abnormality. The visualized paranasal sinuses are clear. Mastoid air cells are well aerated. IMPRESSION: 1. No acute intracranial abnormality. 2. Age-related cerebral atrophy and moderate supratentorial white matter changes probably due to chronic small vessel ischemic disease. 3. 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 Electronically signed by: Abhi Magaña MD (02/21/2020 5:29 PM) [facility]
[2020-02-21 17:34] LABS: CALCIUM 9.3 mg/dL (8.5-10.1); CREATININE 0.9 mg/dL (0.6-1.0); GFR 59.9
[2020-02-21 17:39] LABS: ALBUMIN 3.5 g/dL (3.4-5.0); ALBUMIN/GLOBULIN RATIO 0.8 (1.0-1.7); TOTAL BILIRUBIN 0.4 mg/dL (0.2-1.0); TOTAL PROTEIN 7.7 g/dL (6.4-8.2)
[2020-02-21] MEDS ORDERED: POTASSIUM CHLORIDE 20 MEQ TABLET.ER. PO ONE (17:45)
[2020-02-21] MEDS ORDERED: ONDANSETRON PF 4 MG/2 ML VIAL. IVP PRN (17:45)
--- NOTE | 2020-02-21 17:52 | EKG ---
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
[2020-02-21 18:04] LABS: BACTERIA,URINE 0 /HPF (0-FEW); BILIRUBIN,URINE NEG (NEG); CLARITY,URINE CLEAR; COLOR,URINE YELLOW; GLUCOSE,URINE 100 mg/dL (NEG); NITRITE,URINE NEG (NEG); RBC,URINE RARE /HPF (0-2); UROBILINOGEN,URINE 0.2 mg/dL (0.2 mg/dL); WBC,URINE RARE /HPF (0-4)
[2020-02-21 19:55] VITALS: BP 144/74
--- NOTE | 2020-02-21 20:00 | NUR ---
Pt admitted at 1920 to ICU bed 4 tele status from ER via EMS. Pt presents A&OX3,denies any complaints of pain or discomfort. A full assessment completed, and history obtained from patient. Oriented pt to unit, nurse, call light and plan of care. V/U stated.
[2020-02-22] VITALS (7 sets, daily range): BP systolic 135–157; BP diastolic 60–85
[2020-02-22] MEDS ORDERED: AMLO5TAB10 PO (02:33)
[2020-02-22 07:56] LABS: BASO % 1 % (0-3); EOS # 0.1 x10^3/uL (0.0-0.7); EOS % 2 % (0-3); HEMATOCRIT 42.4 % (36.0-47.0); HEMOGLOBIN 14.3 g/dL (12.0-15.5); LYMPH # 1.2 x10^3/uL (1.0-4.8); LYMPH % 16 % (24-48); MEAN CORPUSCULAR HEMOGLOBIN 30 pg (25-35); MEAN CORPUSCULAR HGB CONC 34 g/dL (31-37); MEAN CORPUSCULAR VOLUME 88 fL (79-100); MONO # 0.7 x10^3/uL (0.0-1.1); MONO % 9 % (0-9); NEUT # 5.6 x10^3uL (1.8-7.7); NEUT % 73 % (31-73); PLATELET COUNT 308 x10^3/uL (140-400); RED BLOOD COUNT 4.82 x10^6/uL (3.50-5.40); RED CELL DISTRIBUTION WIDTH 12.8 % (11.5-14.5); WHITE BLOOD COUNT 7.7 x10^3/uL (4.0-11.0)
[2020-02-22 08:03] LABS: CALCIUM 9.1 mg/dL (8.5-10.1); CREATININE 1.1 mg/dL (0.6-1.0); GFR 47.6; POTASSIUM 3.5 mmol/L (3.5-5.1)
--- NOTE | 2020-02-22 16:14 | HP ---
ADMIT DATE: 02/21/2020 HISTORY OF PRESENT ILLNESS: The patient is an 84-year-old female patient who presented with a chief complaint of generalized weakness. The patient was seen at [facility] the day before yesterday and was discharged. She has had 2 days of generalized weakness and dizziness. She denied any fever, chills, cough, vomiting, diarrhea, or blood in her stool. Denied any pain at this time. Symptoms are worse when she walks or exerts herself. She describes the dizziness as lightheadedness and room spinning. She apparently was extensively investigated in the Emergency Room and has had lab work, which were unremarkable except for hypokalemia. Urinalysis was essentially unremarkable. She has had a CT scan of the head, which basically showed no acute intracranial abnormality, age-related cerebral atrophy and moderate supratentorial white matter changes, probably due to chronic small vessel ischemic disease. She has small old infarcts bilaterally and these involving the cerebellar area. The patient was admitted for further evaluation and treatment. PAST MEDICAL HISTORY: Significant for hypertension, type 2 diabetes. She apparently had previous history of cerebrovascular accident, presented with aphasia and facial droop years ago. PAST SURGICAL HISTORY: Significant for bilateral cataract extraction and cholecystectomy. ALLERGIES: SHE IS ALLERGIC TO SULFA DRUGS. MEDICATIONS: She is currently on following medications: She is on amlodipine besylate 5 mg once a day. She is not taking any medication for her type 2 diabetes that is apparently diet controlled. FAMILY HISTORY: Has one brother who in his 70s due to myocardial infarction. SOCIAL HISTORY: She is , has 2 older sons, one of committing suicide and one killed in a car accident. She has 1 biological daughter and 1 adopted son that she does not know much about. She has never smoked, does not drink alcohol or use recreational drugs. 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 REVIEW OF SYSTEMS: As per history of present illness. PHYSICAL EXAMINATION: GENERAL: On arrival to the Emergency Room, she looked well and was clearly in no apparent respiratory distress. No pallor, jaundice, cyanosis or thyromegaly. No jugular venous distention. No lower limb edema. VITAL SIGNS: Her heart rate was 93, blood pressure was 160/75, temperature was 98.7, respiratory rate was 16, and oxygen saturation was 96% on room air. HEAD, EYES, EARS, NOSE AND THROAT: Showed normocephalic and atraumatic. NECK: Supple. HEART: Showed normal first and second heart sounds. No gallop, rub or murmur. CHEST: Clear to auscultation. No crepitation or rhonchi. ABDOMEN: Distended, soft, nontender. NEUROLOGIC: She is awake, alert, but definitely she clearly has dysarthria and right-sided hemiplegia, although by the ER physician, stated that she has normal motor function, normal sensory function. Has mild expressive aphasia and cerebellar exam was grossly intact. LABORATORY DATA: Her lab work in the Emergency Room showed that her white cell count was 8600, hemoglobin 13.9, hematocrit 40, MCV 88 and platelet count of 327,000. Her serum sodium was 138, potassium 3, chloride 101, bicarbonate 28, anion gap of 9, BUN 12, creatinine 0.9, estimated GFR was 59 mL per minute. Her glucose 162, calcium was 9.3. Total bilirubin, AST, ALT, alkaline phosphatase were normal. Total protein 7.7 and her albumin was 3.5. Her urinalysis showed the urine was yellow, clear with a pH of 7.5, specific gravity 1.025. There was large amount of protein, moderate amount of glucose. The urine was negative for ketones. There was moderate amount of blood, negative for nitrite and leukocyte esterase. There are rare rbc's, rare wbc's, and no bacteria. IMAGING DATA: The CT scan of the head showed no mass effect, midline shift, extraaxial fluid collection, hemorrhage or obvious acute infarction identified. Basilar cisterns are patent. The ventricles and sulci are prominent consistent with age-related cerebral atrophy. There is supratentorial white matter hypoattenuation. This is a nonspecific finding, but is commonly due to chronic small vessel ischemic disease. She has small old infarct in the right and left cerebellum. Bone windows demonstrates no acute calvarial abnormality. The visualized paranasal sinuses are clear. Mastoid air cells are well aerated. ASSESSMENT AND PLAN: The patient was basically originally admitted with generalized weakness and she is unable to ambulate and the plan was initially to consult Physical and Occupational Therapy and also social security specialist perhaps for either placement in a alf facility or long-term care. ELIE GLASS MD DR: TITUS/manuel JOB#: [id number] / [id number]
[2020-02-22] MEDS: amLODIPine BESYLATE 5 MG TABLET PO SCH (16:39)
--- NOTE | 2020-02-22 18:08 | RAD ---
Exam: CT head INDICATION: New onset right-sided hemiplegia TECHNIQUE: Sequential axial images through the head were obtained without the administration of IV contrast. Comparisons: 02/21/2020 FINDINGS: No focal parenchymal lesion or hemorrhage is identified. There is no midline shift or sulcal effacement. Mild patchy hypodensity in the periventricular white matter not significantly changed compared to the prior exam. No acute vascular territory infarction is identified. Flores-white distinction is preserved. The ventricular system is within normal limits without compression hydrocephalus. The basal cisterns are well maintained. The visualized portions of the paranasal sinuses and mastoid air cells are well-pneumatized. No acute fractures. IMPRESSION: No acute intracranial abnormality. Exposure: One or more of the following in the visualized dose reduction techniques were utilized for this examination: 1. Automated exposure control 2. Adjustment of the MA and/or KV according to patient size Use of iterative of reconstructive technique Electronically signed by: Gucci Pressley MD (02/22/2020 6:05 PM) [id number]
[2020-02-22] MEDS: POTASSIUM CL 20MEQ D5-0.45NACL 1,000 ML IV SCH (18:28)
--- NOTE | 2020-02-22 23:34 | NUR ---
Attempted to call pt's son, Hung Cook, at [phone] at this time x2. Answering machine was a different name then the pts son, and there were no other numbers in the chart for Hung Cook.
[2020-02-23 00:40] VITALS: BP 129/52
[2020-02-23 04:00] VITALS: BP 127/51
[2020-02-23] MEDS: POTASSIUM CL 20MEQ D5-0.45NACL 1,000 ML IV SCH ×2 (05:28→17:47)
--- NOTE | 2020-02-23 06:31 | PN ---
DATE: 02/22/2020 SUBJECTIVE: The patient is an 84-year-old female patient who was admitted with generalized weakness. According to the ER physician, she has no obvious motor or sensory deficit. She does have mild expressive aphasia and cerebellar exam was grossly intact; however, when I saw her today, she was clearly has marked dysarthria and clearly has marked weakness of her right upper and lower extremities, although the nursing staff stated that she has no problem swallowing and she was able to feed herself. PHYSICAL EXAMINATION: GENERAL: When I examined her this afternoon, she looked well and was clearly in no apparent respiratory distress. There was no pallor, jaundice, cyanosis or thyromegaly. No jugular venous distention. No limb edema. VITAL SIGNS: Her heart rate was 80, blood pressure was 157/75, temperature was 97.7, respiratory rate was 16, and oxygen saturation was 94%. HEENT: Showed normocephalic, atraumatic. NECK: Supple. CARDIAC: Normal first and second heart sounds. No gallop or murmur. CHEST: Clear to auscultation. No crepitation or rhonchi. ABDOMEN: Distended, soft, nontender. NEUROLOGIC: She has dysarthria and clear right-sided hemiparesis. LABORATORY AND DIAGNOSTIC DATA: This morning showed that her white cell count was 7700, hemoglobin 14, hematocrit 42, MCV 88 and platelet count of 308,000. Her serum sodium was 140, potassium 3.5, chloride 103, bicarbonate 28, anion gap of 9, BUN 12, creatinine 1.1, estimated GFR was 47 mL per minute. Her glucose 160, calcium was 9.1. Unfortunately, I have not seen the patient yesterday when she arrived, but she clearly has right-sided weakness and dysarthria, although CT scan was abnormal that does not obviously exclude the possibility that she might have a cerebrovascular accident. PLAN: My plan is to order another CT scan of the head without contrast. I will check her fasting lipid profile. We will consult Dr. Thrasher and also consider repeating her carotid Doppler ultrasound, although her carotid Doppler ultrasound done about a year ago showed that there is no Doppler evidence of hemodynamically significant stenosis within the carotid or vertebral arteries. ELIE GLASS MD DR: TIUTS/manuel JOB#: [id number] / [id number]
[2020-02-23 07:02] LABS: CALCIUM 8.9 mg/dL (8.5-10.1); CREATININE 1.2 mg/dL (0.6-1.0); POTASSIUM 3.5 mmol/L (3.5-5.1)
[2020-02-23] MEDS: amLODIPine BESYLATE 5 MG TABLET PO SCH (08:30)
[2020-02-23 08:37] VITALS: BP 141/60
[2020-02-23 11:08] VITALS: BP 143/60
--- NOTE | 2020-02-23 11:17 | NUR ---
Consult placed w Dr Thrasher, Per Dr Thrasher he will be in to see patient on Monday AM and to call if staff have any questions or concern prior to Monday AM.
[2020-02-23] MEDS: VANCOMYCIN 125 MG/2.5 ML ORAL SOLUTION. PO SCH ×2 (17:19→20:09)
--- NOTE | 2020-02-23 18:06 | PN ---
DATE: 02/23/2020 SUBJECTIVE: The patient is resting, slightly propped up in bed, no apparent distress. She continued to have dysarthria and right-sided weakness. She has had a CT scan of the head, which basically showed that there is no focal parenchymal lesion or hemorrhage identified. There is no midline shift or sulcal effacement. Mild patchy hypodensity in the periventricular white matter, not significantly changed compared to the prior exam. No acute vascular territory infarction identified. Flores white distinction is preserved. The ventricular system is within normal limits without compression, hydrocephalus. The basal cisterns are well maintained. The visualized portion of the paranasal sinuses and mastoid air cells are well pneumatized with no acute fracture. We kept her actually n.p.o. yesterday, started on IV fluid. However, the nursing staff stated that she has had multiple loose bowel movements, raising concern that she might have C. diff colitis. Her stool was sent for C. diff toxins. PHYSICAL EXAMINATION: GENERAL: When I saw her this afternoon, she was resting slightly propped up in bed, in no apparent distress. There was no pallor, jaundice, cyanosis or thyromegaly. No jugular venous distention. No lower limb edema. VITAL SIGNS: Her heart rate was 76, blood pressure 143/60, temperature 97.8, respiratory rate was 15 and oxygen saturation was 92%. HEAD, EYES, EARS, NOSE AND THROAT: Showed she is normocephalic, atraumatic. NECK: Supple. HEART: Showed normal first and second heart sounds. No gallop, rub or murmur. CHEST: Clear to auscultation. No crepitation or rhonchi. ABDOMEN: Distended, soft, nontender. No guarding or rigidity. No organomegaly. All hernial orifices intact. Bowel sounds normal. NEUROLOGIC: She definitely has dysarthria and right-sided hemiplegia. Her intake over the last 24 hours was incompletely recorded. LABORATORY DATA: As of this morning, her serum sodium was 137, potassium 3.5, chloride 102, bicarbonate 25, anion gap of 10, BUN 12, creatinine 1.2, estimated GFR was 43 mL per minute, her glucose was 192 and calcium was 8.9. ASSESSMENT: 1. The patient was admitted with generalized weakness; however, the patient definitely has dysarthria and right-sided weakness. Although 2 CT scans of the head revealed no evidence of recent infarct, she does have old infarct involving her right and left cerebellum. 2. She has dysarthria. 3. Dysphagia for which we have consulted speech therapy for video swallowing evaluation. The patient has also recurrent episode of loose bowel movement for which stool was sent for culture and sensitivity. PLAN: I will increase her IV fluids to 125 mL per hour. Continue with the amlodipine and if she needs Zofran. I will start her on vancomycin 125 mg 4 times a day as well as a probiotic. ELIE GLASS MD DR: TITUS/manuel JOB#: [id number] / [id number]
[2020-02-23 18:15] VITALS: BP 138/77
[2020-02-23] MEDS ORDERED: ACETAMINOPHEN 650 MG SUPP.RECT. PR PRN (18:15)
[2020-02-23 19:02] LABS: BASO % 1 % (0-3); EOS # 0.2 x10^3/uL (0.0-0.7); EOS % 2 % (0-3); HEMATOCRIT 42.6 % (36.0-47.0); HEMOGLOBIN 14.5 g/dL (12.0-15.5); LYMPH # 1.5 x10^3/uL (1.0-4.8); LYMPH % 15 % (24-48); MEAN CORPUSCULAR HEMOGLOBIN 30 pg (25-35); MEAN CORPUSCULAR HGB CONC 34 g/dL (31-37); MEAN CORPUSCULAR VOLUME 89 fL (79-100); MONO # 0.7 x10^3/uL (0.0-1.1); MONO % 7 % (0-9); NEUT # 7.5 x10^3uL (1.8-7.7); NEUT % 76 % (31-73); PLATELET COUNT 341 x10^3/uL (140-400); RED BLOOD COUNT 4.81 x10^6/uL (3.50-5.40); RED CELL DISTRIBUTION WIDTH 13.2 % (11.5-14.5); WHITE BLOOD COUNT 9.9 x10^3/uL (4.0-11.0)
[2020-02-23 19:10] LABS: ALBUMIN 3.2 g/dL (3.4-5.0); ALBUMIN/GLOBULIN RATIO 0.8 (1.0-1.7); CALCIUM 8.6 mg/dL (8.5-10.1); CREATININE 1.2 mg/dL (0.6-1.0); POTASSIUM 3.1 mmol/L (3.5-5.1); TOTAL BILIRUBIN 0.3 mg/dL (0.2-1.0); TOTAL PROTEIN 7.2 g/dL (6.4-8.2)
[2020-02-23 19:44] LABS: BILIRUBIN,URINE NEG (NEG); CLARITY,URINE CLEAR; COLOR,URINE YELLOW; GLUCOSE,URINE 250 mg/dL (NEG); GRANULAR CASTS,URINE OCC /HPF; NITRITE,URINE NEG (NEG); SQUAMOUS EPITHELIAL CELL,UR OCC /LPF; UROBILINOGEN,URINE 0.2 mg/dL (0.2 mg/dL)
[2020-02-23 19:45] LABS: BACTERIA,URINE FEW /HPF (0-FEW); HYALINE CASTS, URINE OCC /HPF
[2020-02-23 20:00] VITALS: BP 139/57
[2020-02-23] MEDS: LACTOBACILLUS RHAMNOSUS GG 1 CAPSULE. PO SCH (20:09)
[2020-02-24] VITALS (9 sets, daily range): BP systolic 117–213; BP diastolic 43–100
[2020-02-24] MEDS: POTASSIUM CL 20MEQ D5-0.45NACL 1,000 ML IV SCH ×2 (02:58→13:20)
[2020-02-24 06:33] LABS: HEMATOCRIT 38.9 % (36.0-47.0); HEMOGLOBIN 13.4 g/dL (12.0-15.5); RED BLOOD COUNT 4.41 x10^6/uL (3.50-5.40); RED CELL DISTRIBUTION WIDTH 12.9 % (11.5-14.5); WHITE BLOOD COUNT 7.4 x10^3/uL (4.0-11.0)
[2020-02-24 06:50] LABS: ALBUMIN 2.9 g/dL (3.4-5.0); ALBUMIN/GLOBULIN RATIO 0.7 (1.0-1.7); CALCIUM 8.4 mg/dL (8.5-10.1); CREATININE 1.1 mg/dL (0.6-1.0); GFR 47.6; POTASSIUM 3.4 mmol/L (3.5-5.1); TOTAL BILIRUBIN 0.4 mg/dL (0.2-1.0); TOTAL PROTEIN 6.8 g/dL (6.4-8.2)
[2020-02-24] MEDS: LACTOBACILLUS RHAMNOSUS GG 1 CAPSULE. PO SCH ×2 (08:31→20:12)
[2020-02-24] MEDS: VANCOMYCIN 125 MG/2.5 ML ORAL SOLUTION. PO SCH ×4 (08:34→20:12)
[2020-02-24] MEDS: amLODIPine BESYLATE 5 MG TABLET PO SCH (08:34)
--- NOTE | 2020-02-24 10:07 | CONS ---
DATE OF CONSULTATION: 02/24/2020 REFERRING PHYSICIAN: Dr. Elmore. REASON FOR CONSULTATION: Generalized weakness, rule out stroke. HISTORY OF PRESENT ILLNESS: This is an 84-year-old right-handed female, who was admitted on 02/21/2020 on account of generalized weakness and rule out stroke. The patient has had an old stroke, which resulted in right hemiplegia and dysarthria. She was evaluated in the Emergency Room at a few days ago and discharged due to generalized weakness. The patient denies any headaches, visual disturbances, chest pain, shortness of breath or palpitation. She has had intermittent dizziness described as "spinning of the head." In the Emergency Room, her blood pressure was 160/75. Initial nonenhanced head CT scan revealed evidence of chronic small vessel ischemic changes; otherwise no acute intracranial process, as hemorrhage also shows cerebellar atrophy with bilateral infarcts. 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 PAST SURGICAL HISTORY: Positive for cholecystectomy and bilateral cataract extraction. FAMILY HISTORY: Father at age of 70 from coronary artery disease and myocardial infarction. SOCIAL HISTORY: The patient is . She has 1 son who by committing suicide and the others in a car accident. She denies smoking, alcohol drinking, or illicit drug use. CURRENT HOME MEDICATIONS: Tylenol and amlodipine. ALLERGIES: SULFA DRUGS. REVIEW OF SYSTEMS: A 12-point review of system was performed as mentioned above in history of present illness, otherwise unremarkable. PHYSICAL EXAMINATION: GENERAL: A well-developed, well-nourished female, not in acute distress. She weighs 65.8 kilos. VITAL SIGNS: Blood pressure 182/88, respiratory rate 18, pulse is 83 and regular, oxygen saturation is 94% on room air. HEENT: Normocephalic, atraumatic, otherwise unremarkable. NECK: Supple. Negative for carotid bruit, lymphadenopathy or thyromegaly. LUNGS: Clear to A and P. CARDIOVASCULAR: Regular rate and rhythm, normal S1, S2. There is no S3, S4 or murmur. ABDOMEN: Soft. Bowel sounds positive. No palpable mass, organomegaly or tenderness. EXTREMITIES: Negative for cyanosis, clubbing or pitting edema. NEUROLOGIC: Mental Status: The patient is alert and oriented x 2. The speech is dysarthric. There is no language dysfunctions. Memory, judgment, and abstracting thinking are fair. The patient denies hallucination or delusion. CRANIAL NERVES: Visual allen are full. The pupils are reactive to light and accommodation. The extraocular movements are intact. There is no facial motor or sensory deficit. Hearing is intact bilaterally. The palate is elevated symmetrically. Sternocleidomastoid muscles are powerful on the left side. The patient protrudes her tongue in the midline without fasciculation or atrophy. MOTOR: Revealed no focal muscle bulk was seen. The tone is normal. The patient had right hemiplegia with the strength of 3/5 in the right upper extremity and 2/5 in the right lower extremity. SENSORY: Revealed diminished pinprick and light touch senses in glove distributions bilaterally. Deep tendon reflexes were symmetric. It was slightly elevated on the right side with positive Babinski on the right. Gait not tested. LABORATORY DATA: CBC revealed white blood cells of 7.4 thousand, hemoglobin 13.4, hematocrit 38.9, and platelet count 286,000. Chemistry revealed sodium of 140, potassium 3.4, chloride 103, CO2 of 28, BUN 9, creatinine 1.1, glucose 197, and calcium 8.4. Troponin level is 0.03. Urinalysis is negative for urinary tract infections. DIAGNOSTIC DATA: Nonenhanced head CT scan revealed no acute intracranial process, but it shows chronic small vessel ischemic disease with cerebellar atrophy on bilateral small infarcts. IMPRESSION: 1. Generalized weakness, probably due to previous stroke, which resulted in right hemiplegia with aphasia and paraphasia. 2. Hypokalemia, which have contributed to the current generalized weakness. 3. Hypertension, diabetes mellitus, bilateral cerebellar infarcts, which may have contributed to generalized weakness and unsteadiness. RECOMMENDATIONS: 1. Continue with current management initiated by Dr. Elmore. 2. Aspirin 325 mg p.o. daily. 3. Currently underlying hypertension and hypokalemia. 4. Physical therapy as tolerated and treat the underlying diabetes mellitus. M Adria HERNANDEZ MD DR: FLASH/manuel JOB#: [id number] / [id number]
--- NOTE | 2020-02-24 10:44 | NUR ---
Called Dr Elmore about patients blood pressure of 192/86 after giving morning dose of Amlodipine. Orders received. Will continue to monitor.
[2020-02-24] MEDS ORDERED: amLODIPine BESYLATE 5 MG TABLET PO ONE (11:00)
[2020-02-24] MEDS ORDERED: LABETALOL 20 MG/4 ML DISP.SYRIN. IVP ONE (14:30)
--- NOTE | 2020-02-24 14:30 | NUR ---
Pt complains of "weakness" and feeling like "passing out" all of a sudden. This RN obtained vitals as follows: 213/99, heart rate 117, O2 95% RR 14. Dr Elmore on unit and assessed patient. Ordered 10mg labetolol IV Push at this time. WCM.
[2020-02-24] MEDS: POTASSIUM CHLORIDE 10MEQ 100 ML IV SCH ×2 (15:29→17:02)
--- NOTE | 2020-02-24 17:55 | NUR ---
Pt is doing beter now than earlier in the day. She states she feels alot better. VSS at this time and within range. Pt ate all meals today and we changed diet to vegetarian due to pt not liking meat. Pt did tell this RN that she feels she needs to stay longer in the hospital because she feels so "weak".
--- NOTE | 2020-02-24 21:32 | PN ---
DATE: 02/24/2020 SUBJECTIVE: The patient has continued to have dysarthria and right sided weakness. She also has extremely labile hypertension. At one point in time, her blood pressure was extremely high almost 200/99. She was also tachycardic with a heart rate of 118. She was lethargic at that time and we did give her 10 mg of labetalol and apparently that has improved her heart rate is down to 83, blood pressure when I saw her this evening 154/68. The rest of clinical exam remains stable. Her intake over the last 24 hours was 1300, output 250. LABORATORY DATA: Her lab work this morning showed a white cell count 7400, hemoglobin 13, hematocrit 39, MCV 88 and platelet count 286,000. Her serum sodium was 140, potassium 3.4, chloride 103, bicarbonate 28, anion gap of 9, BUN 9, creatinine 1.1, estimated GFR was 47 mL per minute. Her glucose 197, calcium was 8.4. Total bilirubin, AST, ALT, alkaline phosphatase were normal. Total protein was 6.8, albumin was 2.9. Urinalysis was essentially unremarkable. ASSESSMENT: 1. The patient was admitted with generalized weakness; however, the patient definitely has dysarthria and right-sided weakness, although the CT scan of the head revealed no evidence of recent infarct. She does have old infarct involving her right and left cerebellum. 2. She has dysarthria. 3. Dysphagia, for which she consulted Speech Therapy for video swallowing evaluation. 4. The patient has recurrent bouts of loose bowel movement, apparently has subsided. 5. Extremely labile hypertension for which she did respond well to the IV labetalol. 6. The patient continued to have hypokalemia, for which we are replenishing her potassium. Obviously, the concern is the disposition of this patient and she obviously currently she requires a lot of assistance and she would definitely require either a alf facility versus hospice care. We will discuss with our protective services case worker together with her daughter all the options available. ELIE GLASS MD DR: TITUS/manuel JOB#: [id number] / [id number]
[2020-02-25] VITALS (8 sets, daily range): BP systolic 109–169; BP diastolic 54–78
--- NOTE | 2020-02-25 04:47 | NUR ---
Shift Note: Pt is a/o x4, expressive aphasia (requires extra time to communicate w/staff) d/t previous stroke along with right side weakness, stool was sent to lab on 02/22 for cdiff but sample did not meet criteria an order was cancelled, pt has had no further stools, calvert to dependent drainage w/clear yellow urine noted, pt may benefit from rehab after d/c d/t increased weakness.
[2020-02-25 06:27] LABS: CALCIUM 9.1 mg/dL (8.5-10.1); GFR 53.1; MAGNESIUM 1.9 mg/dL (1.8-2.4); POTASSIUM 3.5 mmol/L (3.5-5.1)
--- NOTE | 2020-02-25 08:03 | EKG ---
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
--- NOTE | 2020-02-25 08:41 | PN ---
DATE: 02/25/2020 SUBJECTIVE: The patient denies any new medical or neurological complaints. She denies chest pain, shortness of breath or palpitation. She continues to have dysarthria due to previous stroke along with right-sided hemiplegia. OBJECTIVE: GENERAL: Well-developed, well-nourished female, not in acute distress. VITAL SIGNS: Blood pressure 169/75, respiratory rate 14, pulse is 69 and regular, oxygen saturation is 96%, and temperature 97.8. HEENT: Normocephalic, atraumatic, otherwise unremarkable. NECK: Supple. Negative for carotid bruit, lymphadenopathy or thyromegaly. LUNGS: Clear to A and P. CARDIOVASCULAR: Regular rate and rhythm, normal S1, S2. ABDOMEN: Soft. Bowel sounds positive. EXTREMITIES: Negative for cyanosis, clubbing or edema. NEUROLOGIC EXAM: The patient is alert and oriented to herself and place. Speech is dysarthric secondary to previous stroke. No language dysfunction. The patient follows commands. She denies hallucination or delusion. Cranial nerves are intact. Motor examination right hemiplegia secondary to previous stroke. Otherwise, the strength was 4/5 in the left upper and lower extremities. Deep tendon reflexes were symmetric and active with positive Babinski. Gait not tested. IMPRESSION: 1. Generalized weakness, probably multifactorial. 2. Status post stroke resulted in right hemiplegia and dysarthria. The patient appears to have no difficulty with dysphagia. She is eating and drinking. 3. Multiple medical problems include hypertension, diabetes mellitus. RECOMMENDATIONS: We will continue with current management initiated by Dr. Elmore and rehabilitation. The patient is neurologically stable. M Adria HERNANDEZ MD DR: FLASH/manuel JOB#: [id number] / [id number]
[2020-02-25] MEDS: LACTOBACILLUS RHAMNOSUS GG 1 CAPSULE. PO SCH ×2 (08:48→20:09)
[2020-02-25] MEDS: VANCOMYCIN 125 MG/2.5 ML ORAL SOLUTION. PO SCH ×4 (08:50→20:09)
[2020-02-25] MEDS ORDERED: amLODIPine BESYLATE 5 MG TABLET PO SCH (09:00)
[2020-02-25] MEDS ORDERED: LABETALOL 100 MG/20 ML VIAL. IV ONE (13:00)
--- NOTE | 2020-02-25 14:13 | NUR ---
Attempted to provide patient with IV Labetalol per MD order. PIV in left forearm leaked when initially flushed, PIV removed. New 20g PIV inserted in right forearm; first attempt successful; patient was cooperative and tolerated procedure well. After pushing IV medication, PIV was flushed, saline locked, and capped. Will continue to monitor.
[2020-02-25] MEDS: LABETALOL HCL 100 MG TABLET PO SCH (20:10)
--- NOTE | 2020-02-25 20:22 | PN ---
DATE: 02/25/2020 SUBJECTIVE: The patient is resting, slightly propped up in bed, in no apparent respiratory distress. She is awake, alert, continued to have right-sided hemiplegia and dysarthria; however, she was able to feed herself and seemed to be generally much improved. Her blood pressure continued to be extremely labile. PHYSICAL EXAMINATION: GENERAL: When I examined her this afternoon, she looked well. There was no pallor, jaundice, cyanosis, or thyromegaly. No jugular venous distension. No limb edema. VITAL SIGNS: Her heart rate was 77, blood pressure was 121/58, temperature was 97.8, respiratory rate was 12 and oxygen saturation was 95% on room air. HEAD, EYES, EARS, NOSE AND THROAT: Normocephalic, atraumatic. NECK: Supple. HEART: Normal first and second heart sounds with no gallop, rub or murmur. CHEST: Clear to auscultation. No crepitation or rhonchi. ABDOMEN: Distended, soft, nontender. NEUROLOGIC: She is awake, alert. She continued to have marked dysarthria and right-sided hemiplegia; however, she is able to feed herself using her left upper extremity. Her intake was 2525, output was 1700. LABORATORY DATA: As of this morning, her white cell count was 7400, hemoglobin 13, hematocrit 38, MCV 88 and platelet count 286,000. Serum sodium 139, potassium 3.5, chloride 102, bicarbonate 26, anion gap of 11, BUN 11, creatinine 1, estimated GFR was 53 mL per minute. Her glucose 180, calcium was 9.1, and magnesium was 1.9. ASSESSMENT: 1. The patient was admitted with generalized weakness; however, the patient definitely has dysarthria and right-sided weakness. 2. CT scan of the head done revealed no evidence of recent infarct. She does have old infarct involving her right and left cerebellum. 3. She has dysarthria. 4. Dysphagia for which we have consulted speech therapy and apparently doing very well. 5. The patient has recurrent bouts of loose bowel movement; however, that apparently has resolved. She has extremely labile hypertension that responds very well to IV labetalol. 6. Hypokalemia has finally resolved. PLAN: My plan is to discontinue the amlodipine. Start her on labetalol at 50 mg twice a day and obviously we have discussed with the older adult social work specialist the plan for disposition. She probably either go to a swing bed or group home facility to continue the process of rehabilitation. ELIE GLASS MD DR: TITUS/manuel JOB#: [id number] / [id number]
[2020-02-26 03:04] VITALS: BP 121/55
--- NOTE | 2020-02-26 04:58 | NUR ---
Shift Note: Pt is a/o x4, expressive aphasia (requires extra time to communicate w/staff) d/t previous stroke along with right side weakness, last bowel movement 02/22 was small, calvert to dependent drainage w/clear yellow urine noted, pt may benefit from rehab after d/c d/t increased weakness, pt's daughter, Ingrid, called to obtain update on patient's status.
[2020-02-26 06:07] VITALS: BP 119/74
[2020-02-26] MEDS: VANCOMYCIN 125 MG/2.5 ML ORAL SOLUTION. PO SCH (08:01)
[2020-02-26] MEDS: LACTOBACILLUS RHAMNOSUS GG 1 CAPSULE. PO SCH (08:01)
[2020-02-26] MEDS: LABETALOL HCL 100 MG TABLET PO SCH (08:01)
[2020-02-26 11:19] VITALS: BP 135/61
--- NOTE | 2020-02-26 12:10 | NUR ---
This RN spoke with Ingrid Cook, pts daughter about pt acceptance to [facility] for PT/OT and speech therapy. Daughter accepting of POC and thinks good for pt. Discussed POC with pt about transfer to [place] and was accepting at this time. Awaiting for [facility] for a p/u time. Will continue to monitor.
--- NOTE | 2020-02-26 12:22 | NUR ---
Pt son Garrick Cook called for updates on pt. Pt gave this RN verbal consent to speak with him.
--- NOTE | 2020-02-26 13:20 | DS ---
DATE OF DISCHARGE: 02/26/2020 ATTENDING PHYSICIAN: Dr. Elmore. FINAL DISCHARGE DIAGNOSES: 1. Generalized weakness, improved. 2. Definite dysarthria and right-sided weakness due to old stroke. 3. Dysarthria, persistent. 4. Dysphagia, improved. 5. Recent recurrent bouts of loose stools. C. diff negative. 6. Hypokalemia, corrected. HISTORY AND PHYSICAL: The patient is an 84-year-old female with a previous stroke of the left middle cerebral artery distribution, resulting in expressive aphasia and right-sided hemiparesis. She was unable to be cared for at home. She was sent here for further treatment, evaluation, and Neurology consultation. PHYSICAL EXAMINATION: Please see the dictated note. PERTINENT LABORATORY AND X-RAY STUDIES: Repeat imaging study and CT of the head demonstrated no new parenchymal lesion or hemorrhage, hypodensity in the periventricular white matter, old CVA. Otherwise, no acute changes identified. Her hemoglobin is maintained at 13.4 g/dL, white count 7400. Electrolytes within normal range. Creatinine is 1.1 mg percent. Urinalysis was fairly unremarkable. Cultures of blood showed no growth at 48 hours. COURSE IN THE HOSPITAL: The patient was admitted. She was started on aspirin. She did fairly well. Diet was advanced. Dr. Thrasher saw her. His recommendations are the addition of aspirin a day. Blood pressure was controlled with change to labetalol in lieu of the amlodipine. On the fifth hospital day, family wanted her to go to [place] for further subacute rehabilitation. Arrangements were made for transfer for her to go to [facility]. Her meds have been simplified. She will continue her labetalol 50 mg b.i.d., lactobacillus, and aspirin 325 one daily. Her prognosis is fair. She has a DNR order per advanced directives. The patient was then discharged from our hospital in stable condition with explicit instructions and followup care. CATALINO CHAWLA MD DR: TERESA/manuel JOB#: [id number] / [id number] ELIE Henderson MD
--- NOTE | 2020-02-26 13:20 | PN ---
DATE: SUBJECTIVE: The patient denies any new medical or neurological complaints. She eats and drinks well. OBJECTIVE: GENERAL: Well-developed, well-nourished female, not in acute distress. VITAL SIGNS: Blood pressure 145/74, respiratory rate 14, pulse is 82 regular, oxygen saturation is 96%, and temperature is 98.3. HEENT: Normocephalic, atraumatic, otherwise unremarkable. NECK: Supple. Negative for carotid bruit, lymphadenopathy or thyromegaly. LUNGS: Clear to A and P. CARDIOVASCULAR: Regular rate and rhythm, normal S1, S2. There is no S3, S4 or murmur. ABDOMEN: Soft. Bowel sounds positive. EXTREMITIES: Negative for cyanosis, or pitting edema. NEUROLOGICAL EXAM: Mental Status: The patient is alert and oriented x 2. Speech is dysarthric. There is no language dysfunction. Cranial nerves are intact. Motor examination consistent with right hemiplegia. Sensory examination revealed normal pinprick, light touch senses throughout. Deep tendon reflexes were symmetric and active with positive Babinski on the right side. Gait not tested. IMPRESSION: 1. Generalized weakness, probably multifactorial. 2. Right hemiplegia with dysarthria secondary to previous stroke. 3. Multiple medical problems include hypertension, diabetes mellitus. RECOMMENDATIONS: Continue with current management initiated by Dr. Elmore and Dr. García and rehabilitation. M Adria HERNANDEZ MD DR: FLASH/manuel JOB#: [id number] / [id number]
--- NOTE | 2020-02-26 13:20 | PN ---
DATE: 02/26/2020 ATTENDING PHYSICIAN: Dr. Elmore. CHIEF COMPLAINT: Weakness. SUBJECTIVE: The patient is fairly alert. She is aphasic. She has expressive aphasia. She also has concomitant right sided hemiparesis consistent with a stroke involving the left middle cerebral artery distribution. Her repeat scan showed no evidence of new strokes. OBJECTIVE FINDINGS: VITAL SIGNS: Blood pressure today is 119/74 mmHg, temperature 98.3 degrees Fahrenheit, oxygen saturation 96% on room air, pulse rate was 80 and regular. HEENT: Head is without trauma. Pupils are reactive. Sclerae nonicteric. Oropharynx is clear. NECK: Supple. Slight facial droop. LUNGS: Shallow respirations, otherwise clear. CARDIOVASCULAR: Showed regular heart tones. No gallops. ABDOMEN: Soft. EXTREMITIES: Showed no cyanosis or edema. NEUROLOGIC: Expressive aphasia. She is understanding, she has right sided hemiparesis. LABORATORY DATA: Hemoglobin was 13.4 g/dL with white count of 7400. Electrolytes, BUN and creatinine, nonfasting blood sugar within normal range. Transaminase and liver functions were normal. ASSESSMENT: 1. An 84-year-old female with generalized weakness. 2. Old cerebrovascular infarct, left middle cerebral artery distribution with expressive aphasia and right sided hemiparesis. 3. Essential hypertension, currently normotensive. 4. Type 2 diabetes. PLAN: 1. Continue home meds as ordered. 2. We should discuss family wishes whether they want her to go to rehab or whether she is going to take her home. She may have reached the point in her life with the daughter cannot manage her at home. CATALINO CHAWLA MD DR: TERESA/manuel JOB#: [id number] / [id number]
[2020-02-26 15:00] VITALS: BP 169/80
--- NOTE | 2020-02-26 16:40 | NUR ---
Discharge note: pt VSS at this time. pt belongings and folder with pt hospital discharge information, wheeled with pt to [facility] staff to front of hospital. Report called to Chaitanya GATES at [facility]. All questions answered.
== END 2020-02-26 16:40 | DRG 641 ==
LOC: ER 16:40 → ICU 17:34 → ER 19:35 → OBSVTOIN 02-22 19:15
PROVIDERS: ADMIT Internal Medicine; ATTEND Internal Medicine
DX: E87.6 Hypokalemia (principal); I69.351 Hemiplegia and hemiparesis following cerebral infarction affecting right dominant side; E11.9 Type 2 diabetes mellitus without complications; I10 Essential (primary) hypertension; I69.320 Aphasia following cerebral infarction; Z66 Do not resuscitate; R13.10 Dysphagia, unspecified; Z82.49 Family history of ischemic heart disease and other diseases of the circulatory system; Z98.41 Cataract extraction status, right eye; Z98.42 Cataract extraction status, left eye; Z88.2 Allergy status to sulfonamides; R47.1 Dysarthria and anarthria
CPT/HCPCS: 36415; 70450; 71045; 80048; 80053; 81001; 83735; 84484; 85025; 85027; 87040; 93005; 96374; G0378; G0379; J2405; J3480; J3490; 92610; 97110; 97535; 99285-25

== ENCOUNTER 2020-03-17 09:12 | Emergency (ER) | payer MEDICARE ==
[~2020-03-17] VITALS: Ht 149.9 cm; Wt 60.0 kg
[~2020-03-17 09:12] MED LIST: AMLO-186 PO
[2020-03-17 09:20] VITALS: BP 138/67
--- NOTE | 2020-03-17 09:24 | PHYS DOC ---
Past History Past Medical History: Diabetes, Stroke Past Surgical History: Cholecystectomy Alcohol Use: None Drug Use: None General Adult EDM: Chief Complaint: SYNCOPE HPI: HPI: 84-year-old female presents via EMS with syncopal episodes. The patient is staying at a nursing care facility. She has had 2 syncopal episodes in the last 2 days. One was yesterday evening and one was this morning. The patient tells me that she gets dizzy when she stands up, and she felt dizzy before both syncopal episodes. When they checked her this morning her blood pressure was 80s over 40s right after her syncopal episode. Her blood sugar has been normal. Her blood pressure other times has been within normal limits. Patient has had UTIs in the past. She denies fever or chills at this time. It was reported that the patient is getting 100 mg of Labetolol BID. Review of Systems: Review of Systems: Constitutional: Denies fever or chills Eyes: Denies change in visual acuity HENT: Denies nasal congestion or sore throat Respiratory: Denies cough or shortness of breath Cardiovascular: Denies chest pain or edema GI: Denies abdominal pain, nausea, vomiting, bloody stools or diarrhea : Denies dysuria Musculoskeletal: Denies back pain or joint pain Integument: Denies rash Neurologic: Syncope, dizziness. Denies headache, focal weakness or sensory changes Endocrine: Denies polyuria or polydipsia Lymphatic: Denies swollen glands Psychiatric: Denies depression or anxiety Allergies: Allergies: Allergies Coded Allergies Type Severity Reaction Last Updated Verified Sulfa (Sulfonamide Antibiotics) Allergy Intermediate 02/22/19 Yes Physical Exam: PE: Constitutional: Well developed, well nourished, no acute distress, non-toxic appearance. [] HENT: Normocephalic, atraumatic, bilateral external ears normal, oropharynx moist, no oral exudates, nose normal. [] Eyes: PERRLA, EOMI, conjunctiva normal, no discharge. [] Neck: Normal range of motion, no tenderness, supple, no stridor. [] Cardiovascular: Heart rate regular rhythm, no murmur [] Lungs & Thorax: Bilateral breath sounds clear to auscultation [] Abdomen: Bowel sounds normal, soft, no tenderness, no masses, no pulsatile masses. [] Skin: Warm, dry, no erythema, no rash. [] Back: No tenderness, no CVA tenderness. [] Extremities: No tenderness, no cyanosis, no clubbing, ROM intact, no edema. [] Neurologic: Alert and oriented X 3, normal motor function, normal sensory function, no focal deficits noted. [] Psychologic: Affect normal, judgement normal, mood normal. [] EKG: EKG: Sinus rhythm, rate 68, leftward axis, left bundle branch block, no ST elevations or depressions. [] Radiology/Procedures: Radiology/Procedures: [] Impressions: EXAM: CHEST AP ONLY 03/17/2020 9:21 AM CLINICAL INDICATION: Syncope COMPARISON: Chest radiograph 02/21/2020 and 02/21/2019 TECHNIQUE: AP upright view the chest FINDINGS: The cardiomediastinal silhouette is unchanged. Lungs are well-expanded. A few small scattered nodular densities are unchanged from 02/21/2019. No consolidation, pleural effusion, or pneumothorax. Pulmonary vascularity is normal. No acute osseous abnormality. IMPRESSION: No acute cardiopulmonary abnormality. A few small scattered nodular densities are unchanged from 02/21/2019. Electronically signed by: Jeanne Middleton MD (03/17/2020 10:18 AM) [id number] DICTATED AND SIGNED BY: JEANNE MIDDLETON MD DATE: 03/17/20 1018 CC: PANDA MARK DO; ELIE GLASS MD ~ EXAM: CT head without contrast INDICATION: Syncope COMPARISON: CT head 02/22/2020 TECHNIQUE: Axial CT imaging through the head without intravenous contrast. One or more of the following individualized dose reduction techniques were utilized for this examination: 1. Automated exposure control 2. Adjustment of the mA and/or kV according to patient size 3. Use of iterative reconstruction technique. FINDINGS: The ventricles and sulci are moderately enlarged, reflecting age-related volume loss. There is a moderate burden of periventricular and deep hypoattenuating white matter lesions. There are old lacunar infarcts in the basal ganglia. Castanon-white matter differentiation is maintained. There is no intracranial hemorrhage, acute infarct, or mass lesion. Basal cisterns are clear. The skull and scalp are intact. The visualized paranasal sinuses and mastoid air cells are clear. Lenses have been extracted. IMPRESSION: 1. No acute intracranial abnormality. 2. Unchanged moderate volume loss and moderate white matter disease, likely related to chronic microvascular ischemia. Electronically signed by: Jeanne Middleton MD (03/17/2020 10:08 AM) [id number] DICTATED AND SIGNED BY: JEANNE MIDDLETON MD DATE: 03/17/20 1008 CC: PANDA MARK DO; ELIE GLASS MD ~ Heart Score: Risk Factors: Risk Factors: DM, Current or recent (<one month) smoker, HTN, HLP, family history of CAD, obesity. Risk Scores: Score 0 - 3: 2.5% MACE over next 6 weeks - Discharge Home Score 4 - 6: 20.3% MACE over next 6 weeks - Admit for Clinical Observation Score 7 - 10: 72.7% MACE over next 6 weeks - Early Invasive Strategies Course & Med Decision Making: Course & Med Decision Making Pertinent Labs and Imaging studies reviewed. (See chart for details) Her labs are unremarkable. Her head CT is negative for acute findings. Her urinalysis is negative for infection. Her EKG is negative for acute findings. Her chest x-ray is negative for acute findings. I think the patient is having an adverse reaction to her medication. Her beta-irving dose is pretty high for a person of her age. I think reducing this may help significantly with her syncopal episodes. She is stable for discharge at this time. Taylor Disclaimer: Taylor Disclaimer: This electronic medical record was generated, in whole or in part, using a voice recognition dictation system. Departure Departure: Impression: Primary Impression: Syncopal episodes Disposition: 01 DC HOME SELF CARE/HOMELESS Condition: STABLE Referrals: PCP,NO (PCP) Patient Instructions: Syncope, [id number] Additional Instructions: Please consider significantly reducing the patient's beta-irving dosage to see if this reduces or eliminates her syncopal episodes. PANDA MARK DO Mar 17, 2020 09:24
[2020-03-17] MEDS ORDERED: IV NORMAL SALINE 500ML 500 ML IV ONE (09:45)
--- NOTE | 2020-03-17 09:50 | EKG ---
[address] [address] Test Date: 2020-03-17 Test Time: 09:30:20 Pat Name: CHARITY GONZALEZ Department: Room: Gender: F Thread Puller: EDER : 1935 Requested By: PANDA MARK Order Number: [id number] Reading MD: Measurements Intervals [place] Rate: 68 P: -27 [place]: 184 QRS: -5 QRSD: 124 T: 150 QT: 460 QTc: 495 Interpretive Statements SINUS RHYTHM LEFTWARD AXIS LEFT BUNDLE BRANCH BLOCK ABNORMAL ECG RI6.02 No previous ECG available for comparison
--- NOTE | 2020-03-17 10:11 | RAD ---
EXAM: CT head without contrast INDICATION: Syncope COMPARISON: CT head 02/22/2020 TECHNIQUE: Axial CT imaging through the head without intravenous contrast. One or more of the following individualized dose reduction techniques were utilized for this examination: 1. Automated exposure control 2. Adjustment of the mA and/or kV according to patient size 3. Use of iterative reconstruction technique. FINDINGS: The ventricles and sulci are moderately enlarged, reflecting age-related volume loss. There is a moderate burden of periventricular and deep hypoattenuating white matter lesions. There are old lacunar infarcts in the basal ganglia. Castanon-white matter differentiation is maintained. There is no intracranial hemorrhage, acute infarct, or mass lesion. Basal cisterns are clear. The skull and scalp are intact. The visualized paranasal sinuses and mastoid air cells are clear. Lenses have been extracted. IMPRESSION: 1. No acute intracranial abnormality. 2. Unchanged moderate volume loss and moderate white matter disease, likely related to chronic microvascular ischemia. Electronically signed by: Jeanne Middleton MD (03/17/2020 10:08 AM) [id number]
[2020-03-17 10:13] LABS: BASO # 0.1 x10^3/uL (0.0-0.2); BASO % 1 % (0-3); EOS # 0.2 x10^3/uL (0.0-0.7); EOS % 3 % (0-3); HEMATOCRIT 40.2 % (36.0-47.0); HEMOGLOBIN 13.5 g/dL (12.0-15.5); LYMPH # 1.2 x10^3/uL (1.0-4.8); LYMPH % 16 % (24-48); MEAN CORPUSCULAR HEMOGLOBIN 30 pg (25-35); MEAN CORPUSCULAR HGB CONC 34 g/dL (31-37); MEAN CORPUSCULAR VOLUME 89 fL (79-100); MONO # 0.6 x10^3/uL (0.0-1.1); MONO % 9 % (0-9); NEUT # 5.5 x10^3uL (1.8-7.7); NEUT % 72 % (31-73); PLATELET COUNT 333 x10^3/uL (140-400); RED BLOOD COUNT 4.52 x10^6/uL (3.50-5.40); RED CELL DISTRIBUTION WIDTH 13.2 % (11.5-14.5); WHITE BLOOD COUNT 7.6 x10^3/uL (4.0-11.0)
--- NOTE | 2020-03-17 10:22 | RAD ---
EXAM: CHEST AP ONLY 03/17/2020 9:21 AM CLINICAL INDICATION: Syncope COMPARISON: Chest radiograph 02/21/2020 and 02/21/2019 TECHNIQUE: AP upright view the chest FINDINGS: The cardiomediastinal silhouette is unchanged. Lungs are well-expanded. A few small scattered nodular densities are unchanged from 02/21/2019. No consolidation, pleural effusion, or pneumothorax. Pulmonary vascularity is normal. No acute osseous abnormality. IMPRESSION: No acute cardiopulmonary abnormality. A few small scattered nodular densities are unchanged from 02/21/2019. Electronically signed by: Jeanne Middleton MD (03/17/2020 10:18 AM) [id number]
[2020-03-17 10:25] LABS: CALCIUM 9.3 mg/dL (8.5-10.1); CREATININE 1.2 mg/dL (0.6-1.0); POTASSIUM 3.5 mmol/L (3.5-5.1)
[2020-03-17 11:19] LABS: BACTERIA,URINE 0 /HPF (0-FEW); BILIRUBIN,URINE NEG (NEG); CLARITY,URINE CLEAR; COLOR,URINE YELLOW; GLUCOSE,URINE NEG (NEG); HYALINE CASTS, URINE OCC /HPF; NITRITE,URINE NEG (NEG); SQUAMOUS EPITHELIAL CELL,UR FEW /LPF; UROBILINOGEN,URINE 0.2 mg/dL (0.2 mg/dL)
[2020-03-17 11:53] LABS: ALBUMIN/GLOBULIN RATIO 0.8 (1.0-1.7); TOTAL BILIRUBIN 0.2 mg/dL (0.2-1.0); TOTAL PROTEIN 6.9 g/dL (6.4-8.2)
== END 2020-03-17 13:15 | disposition home or self-care (01) ==
LOC: ER 09:12
DX: R55 Syncope and collapse (principal); R42 Dizziness and giddiness; E11.9 Type 2 diabetes mellitus without complications; Z86.73 Personal history of transient ischemic attack (TIA), and cerebral infarction without residual deficits; Z88.2 Allergy status to sulfonamides
CPT/HCPCS: 36415; 70450; 71045; 80053; 81001; 82947; 84484; 85025; 93005; 96360; 99285; J7040